=== PATIENT | male | born 1955 | race Caucasian/White ===

== ENCOUNTER 2016-09-02 12:27 | Emergency (ER) | payer MEDICARE, MEDICAID ==
[~2016-09-02] VITALS: Ht 177.8 cm; Wt 72.7 kg
[~2016-09-02 12:27] MED LIST: ATOR20TA38 PO; BENA20TA48 PO; CARV3.1260 PO; ETHA400T25; FURO-109 PO; RIFA150C2 PO; SPIR25TA PO
[2016-09-02 12:30] VITALS: Ht 177.8 cm; Wt 72.7 kg
[2016-09-02 12:44] LABS: ADD SCAN DIFF NO
[2016-09-02 12:47] LABS: BASOPHILS % 0.6 % (0.0-2.0); EOSINOPHILS # 0.5 10^3/ul (0.0-0.5); EOSINOPHILS % 7.1 % (0.0-7.0); HEMATOCRIT 39.5 % (42.0-52.0); HEMOGLOBIN 12.9 g/dl (14.0-18.0); LYMPHOCYTES # 1.6 10^3/ul (0.8-2.9); LYMPHOCYTES % 25.4 % (15.0-51.0); MEAN CORPUSCULAR HEMOGLOBIN 30.5 pg (29.0-33.0); MEAN CORPUSCULAR HGB CONC 32.7 g/dl (32.0-37.0); MEAN CORPUSCULAR VOLUME 93.4 fl (82.0-101.0); MEAN PLATELET VOLUME 10.5 fl (7.4-10.4); MONOCYTE # 0.7 10^3/ul (0.3-0.9); MONOCYTES % 11.6 % (0.0-11.0); NEUTROPHIL # 3.5 10^3/ul (1.6-7.5); PLATELET COUNT 141 10^3/UL (140-415); RED BLOOD COUNT 4.23 10^6/ul (4.70-6.10); RED CELL DISTRIBUTION WIDTH 14.4 % (11.5-14.5); WHITE BLOOD COUNT 6.3 10^3/ul (4.8-10.8)
[2016-09-02 12:59] LABS: CHLORIDE 106 mmol/L (97-110); POTASSIUM 3.8 mmol/L (3.5-5.1); SODIUM 143 mmol/L (135-144)
[2016-09-02 13:01] LABS: CREATININE 1.07 mg/dl (0.61-1.24)
[2016-09-02 13:02] LABS: ANION GAP 14 (8-16); BLOOD UREA NITROGEN 29 mg/dl (7-20); CALCIUM 9.7 mg/dl (8.4-10.2); CARBON DIOXIDE 27 mmol/L (21-31); GLUCOSE 88 mg/dl (70-220)
[2016-09-02 13:03] LABS: INR 1.06; PROTIME 13.8 Sec (12.2-14.2); PT RATIO 1.1
[2016-09-02 13:04] LABS: PARTIAL THROMBOPLASTIN TIME 32.6 Sec (25.0-35.0)
[2016-09-02 13:22] LABS: TROPONIN-I < 0.012 ng/ml (0.00-0.12)
--- NOTE | 2016-09-02 14:15 | RADRPT ---
PROCEDURE: CT Brain without contrast. CLINICAL INDICATION: Slurred speech. Possible stroke. TECHNIQUE: A CT of the brain was performed on a multidetector CT scanner utilizing axial sections from the skull base through the vertex without contrast. Images were reviewed on a high-resolution [employer] workstation. Exam CTDI = 43.05 mGy and the DLP = 810.25 mGy-cm. One or more of the following dose reduction techniques were used: Automated exposure control Adjustment of the mA and/or kV according to patient size. Use of iterative reconstruction technique. COMPARISON: MRI brain 10/03/2014 FINDINGS: Mild to moderate diffuse cerebral and cerebellar atrophy is present. There is proportionate dilatat ion of the ventricular system and sulci in a symmetric fashion. There is prominence of the extraaxia l spaces secondary to atrophy. There is no evidence of intracranial hemorrhage, mass effect or midli ne shift. There is small area of transcortical infarct in the left inferior frontal lobe extending i nto the frontal operculum. No abnormal intra-axial or extra-axial fluid collections are seen. The d ensity of the brain is normal and the nicolas/white matter differentiation is well preserved. Mild pat jacquelin diffuse deep white matter microangiopathic ischemic change is seen. The osseous structures a re unremarkable. Paranasal sinuses are clear. Vascular calcifications are identified. There is a sma ll subcutaneous lipoma on the right forehead. IMPRESSION: 1. No intracranial hemorrhage, mass effect or midline shift. 2. Mild to moderate generalized atrophy. Mild microangiopathic ischemic change. 3. Chronic infarct in the inferior left frontal lobe extending into the left frontal operculum. 4. Intracranial atherosclerosis. RPTAT: AAEE .Gus Garay MD, MD Date Time Electronically viewed and signed by .Gus Garay MD, MD on 09/02/2016 14:14 .O/
--- NOTE | 2016-09-02 14:23 | ERD ---
ER Documentation Chief Complaint Date/Time DATE: 09/02/16 TIME: 14:23 Chief Complaint aspahsia following a fall at home at 0300, hs of stroke HPI Patient is a 61-year-old male with stroke and hypertension who presents with difficulty speaking. The patient had a fall at 3 AM and afterwards had "aphasia " per the family. There was no loss of consciousness. The symptoms have been constant. The patient says this is not normal for him. Upon review of old medical records this is the patient's third visit to the ER since 2013. The patient was brought in by ambulance. ROS All systems reviewed and are negative except as per history of present illness. Medications Home Meds Reported Medications Ethambutol HCl* (Myambutol*) 400 Mg Tablet UNABLE TO CONFIRM DOSE/STRENGTH; PATIENT NOT COMPLIANT 10/03/14 Rifampin* (Rifampin*) 150 Mg Capsule, 150 MG PO BID, CAP PATIENT NOT COMPLIANT; UNABLE TO CONFIRM DOSE 10/03/14 Carvedilol* (Carvedilol*) 3.125 Mg Tablet, 3.125 MG PO BID, TAB 05/05/14 Atorvastatin Calcium* (Atorvastatin Calcium*) 20 Mg Tablet, 20 MG PO DAILY, TAB 05/05/14 Benazepril Hcl* (Benazepril Hcl*) 20 Mg Tablet, 20 MG PO DAILY, TAB 05/05/14 Furosemide* (Lasix*) 40 Mg Tablet, 40 MG PO BID, TAB 05/05/14 Spironolactone* (Aldactone*) 25 Mg Tablet, 25 MG PO DAILY, TAB 05/05/14 Allergies Allergies: Coded Allergies: Penicillins (Unverified Allergy, Unknown, 10/03/14) PMhx/Soc History of Surgery: Yes (lung resection) Anesthesia Reaction: No Hx Neurological Disorder: Yes (CVA, Seizure) Hx Respiratory Disorders: Yes (Left Lung Ca) Hx Cardiac Disorders: Yes (CHF) Hx Psychiatric Problems: No Hx Miscellaneous Medical Probl: Yes (Epilepsy, Lung CA, CVA, CHF, TB,) Hx Alcohol Use: Yes (Occ'l drink of beer or wine) Hx Substance Use: Yes (Marijuana) Hx Tobacco Use: Yes (1/2 pack/day) Smoking Status: Current every day smoker FmHx Family History: No diabetes Physical Exam Vitals Vital Signs Date Time Temp Pulse Resp B/P Pulse Ox O2 Delivery O2 Flow Rate FiO2 09/02/16 12:30 97.6 71 20 120/70 96 Physical Exam Const: No acute distress Head: Atraumatic Eyes: Normal Conjunctiva ENT: Normal External Ears, Nose and Mouth. Neck: Full range of motion..~ No meningismus. Resp: Clear to auscultation bilaterally Cardio: Regular rate and rhythm, no murmurs Abd: Soft, non tender, non distended. Normal bowel sounds Skin: No petechiae or rashes Back: No midline or flank tenderness Ext: No cyanosis, or edema Neur: Awake and alert, patient does have word finding difficulty which he says is not normal for him, there is full range of motion of the upper and lower extremities bilaterally, cranial nerves II through XII are intact Psych: Normal Mood and Affect Result Diagram: 09/02/16 1230 09/02/16 1230 Results 24 hrs Laboratory Tests Test 09/02/16 12:30 09/02/16 12:57 White Blood Count 6.310^3/ul Red Blood Count 4.2310^6/ul Hemoglobin 12.9g/dl Hematocrit 39.5% Mean Corpuscular Volume 93.4fl Mean Corpuscular Hemoglobin 30.5pg Mean Corpuscular Hemoglobin Concent 32.7g/dl Red Cell Distribution Width 14.4% Platelet Count 38475^3/UL Mean Platelet Volume 10.5fl Neutrophils % 55.0% Lymphocytes % 25.4% Monocytes % 11.6% Eosinophils % 7.1% Basophils % 0.6% Nucleated Red Blood Cells % 0.0/100WBC Neutrophils # 3.510^3/ul Lymphocytes # 1.610^3/ul Monocytes # 0.710^3/ul Eosinophils # 0.510^3/ul Basophils # 0.010^3/ul Nucleated Red Blood Cells # 0.010^3/ul Prothrombin Time 13.8Sec Prothrombin Time Ratio 1.1 INR International Normalized Ratio 1.06 Activated Partial Thromboplast Time 32.6Sec Sodium Level 143mmol/L Potassium Level 3.8mmol/L Chloride Level 106mmol/L Carbon Dioxide Level 27mmol/L Anion Gap 14 Blood Urea Nitrogen 29mg/dl Creatinine 1.07mg/dl Glucose Level 88mg/dl Hemoglobin A1c 5.7% Calcium Level 9.7mg/dl Troponin I < 0.012ng/ml Bedside Glucose 80mg/dL Procedures/MDM EKG read by me: Rate/Rhythm: Atrial fibrillation at a rate of 81 Intervals: Normal Impression: Atrial fibrillation without ischemia PROCEDURE: CT Brain without contrast. CLINICAL INDICATION: Slurred speech. Possible stroke. TECHNIQUE: A CT of the brain was performed on a multidetector CT scanner utilizing axial sections from the skull base through the vertex without contrast. Images were reviewed on a high-resolution [employer] workstation. Exam CTDI = 43.05 mGy and the DLP = 810.25 mGy-cm. One or more of the following dose reduction techniques were used: Automated exposure control Adjustment of the mA and/or kV according to patient size. Use of iterative reconstruction technique. COMPARISON: MRI brain 10/03/2014 FINDINGS: Mild to moderate diffuse cerebral and cerebellar atrophy is present. There is proportionate dilatation of the ventricular system and sulci in a symmetric fashion. There is prominence of the extraaxial spaces secondary to atrophy. There is no evidence of intracranial hemorrhage, mass effect or midline shift. There is small area of transcortical infarct in the left inferior frontal lobe extending into the frontal operculum. No abnormal intra-axial or extra-axial fluid collections are seen. The density of the brain is normal and the nicolas/ white matter differentiation is well preserved. Mild patchy diffuse deep white matter microangiopathic ischemic change is seen. The osseous structures are unremarkable. Paranasal sinuses are clear. Vascular calcifications are identified. There is a small subcutaneous lipoma on the right forehead. The patient has anemia without needing a transfusion at this time. IMPRESSION: 1. No intracranial hemorrhage, mass effect or midline shift. 2. Mild to moderate generalized atrophy. Mild microangiopathic ischemic change. 3. Chronic infarct in the inferior left frontal lobe extending into the left frontal operculum. 4. Intracranial atherosclerosis. RPTAT: AAEE .Gus Garay MD, Date Time Electronically viewed and signed by .Gus Garay MD, MD on 09/02/2016 14:14 Smoking Cessation Therapy: Pt. was lectured for greater than 3 minutes on the health risks of continued smoking and the benefits of cessation. Patient is a 61-year-old male with stroke and hypertension who presents with a fascia. I am concerned for another stroke. The patient had a full workup for stroke and I want to admit him to the hospital. However the patient is adamant that he does not want to stay in the hospital. He is going to sign out AGAINST MEDICAL ADVICE. I explained to him the risks of having a worsening stroke and even but the patient does not want to stay and understands the risks. The patient should follow-up closely with his primary doctor as soon as possible. He can return for any worsening symptoms. Departure Diagnosis: Primary Impression: Aphasia Additional Impressions: Altered level of consciousness Stroke CVA mechanism: unspecified Qualified Code: I63.9 - Cerebrovascular accident (CVA), unspecified mechanism Condition: Fair Patient Instructions: Stroke and Heart Disease, What Is Aphasia? Referrals: Your doctor Additional Instructions: FOLLOW UP WITH YOUR PRIMARY CARE PHYSICIAN TOMORROW.Return to this facility if you are not improving as expected. HAI RUBIN MD Sep 02, 2016 14:23
--- NOTE | 2016-09-02 14:26 | RADRPT ---
PROCEDURE: XR Chest. CLINICAL INDICATION: Altered level of consciousness. TECHNIQUE: AP Portable chest. COMPARISON: Chest x-ray 10/03/2014. FINDINGS: Once again, there is evidence of extensive pleural parenchymal scarring in the left upper lobe with hazy opacification in the left lung apex and tenting of the left suprahilar region. The heart is gr ossly normal in size. The right lung is slightly hyperaerated but clear. No definite pleural effus ions are seen. Elevation of the left hemidiaphragm is unchanged. Degenerative spondylosis of the t horacic spine is evident. IMPRESSION: 1. Grossly stable appearance of the chest with marked pleural parenchymal scarring and volume loss in the lower lung as described above. 2. Clear right lung. RPTAT: PP .Yvonne Boyer MD, Date Time Electronically viewed and signed by .Yvonne Boyer MD, on 09/02/2016 14:25 .H/
== END 2016-09-02 14:48 | disposition left against medical advice (07) ==
LOC: E/R 12:27
DX: R47.01 Aphasia (principal); R40.2252 Coma scale, best verbal response, oriented, at arrival to emergency department; R40.4 Transient alteration of awareness; I63.9 Cerebral infarction, unspecified; I50.9 Heart failure, unspecified; F17.210 Nicotine dependence, cigarettes, uncomplicated; R40.2142 Coma scale, eyes open, spontaneous, at arrival to emergency department; R40.2362 Coma scale, best motor response, obeys commands, at arrival to emergency department; Z85.118 Personal history of other malignant neoplasm of bronchus and lung
CPT/HCPCS: 36415; 70450; 71010; 80048; 82962; 83036; 84484; 85025; 85610; 85730; 93005

== ENCOUNTER 2016-10-13 20:49 | Inpatient (IN) | payer MEDICARE, MEDICAID ==
[~2016-10-13] VITALS: Ht 195.6 cm; Wt 77.8 kg
[2016-10-13 21:07] LABS: ADD SCAN DIFF NO
--- NOTE | 2016-10-13 21:07 | ERA ---
ER Documentation Chief Complaint Date/Time DATE: 10/13/16 TIME: 21:02 Chief Complaint BERE RA39 from home, left side weakness,left mouth droop started 2019 HPI Patient is a 61-year-old male who presents with sudden onset, constant left- sided weakness with left facial droop for 30 minutes. The patient also reports difficulty speaking. He reports history of prior TIA, denies having these symptoms previously. He denies headache, vomiting, dizziness. He denies chest pain, shortness of breath. ROS All systems reviewed and are negative except as per history of present illness. Medications Home Meds Reported Medications Ethambutol HCl* (Myambutol*) 400 Mg Tablet UNABLE TO CONFIRM DOSE/STRENGTH; PATIENT NOT COMPLIANT 10/03/14 Rifampin* (Rifampin*) 150 Mg Capsule, 150 MG PO BID, CAP PATIENT NOT COMPLIANT; UNABLE TO CONFIRM DOSE 10/03/14 Carvedilol* (Carvedilol*) 3.125 Mg Tablet, 3.125 MG PO BID, TAB 05/05/14 Atorvastatin Calcium* (Atorvastatin Calcium*) 20 Mg Tablet, 20 MG PO DAILY, TAB 05/05/14 Benazepril Hcl* (Benazepril Hcl*) 20 Mg Tablet, 20 MG PO DAILY, TAB 05/05/14 Furosemide* (Lasix*) 40 Mg Tablet, 40 MG PO BID, TAB 05/05/14 Spironolactone* (Aldactone*) 25 Mg Tablet, 25 MG PO DAILY, TAB 05/05/14 Allergies Allergies: Coded Allergies: Penicillins (Unverified Allergy, Unknown, 10/03/14) PMhx/Soc Past medical history: Hypertension, CHF, latent tuberculosis, TIA, lung cancer Past surgical history: Resection of lung tumor, resection of renal tumor Social history: Smokes cigarettes, denies alcohol History of Surgery: Yes (lung resection) Anesthesia Reaction: No Hx Neurological Disorder: Yes (CVA, Seizure) Hx Respiratory Disorders: Yes (Left Lung Ca) Hx Cardiac Disorders: Yes (CHF) Hx Psychiatric Problems: No Hx Miscellaneous Medical Probl: Yes (Epilepsy, Lung CA, CVA, CHF, TB,) Hx Alcohol Use: Yes (Occ'l drink of beer or wine) Hx Substance Use: Yes (Marijuana) Hx Tobacco Use: Yes (1/2 pack/day) Smoking Status: Current every day smoker FmHx Family History: No coronary disease, No diabetes Physical Exam Vitals Vital Signs Date Time Temp Pulse Resp B/P Pulse Ox O2 Delivery O2 Flow Rate FiO2 10/13/16 23:42 726 21 123/63 95 10/13/16 23:27 72 21 123/65 95 10/13/16 23:12 73 18 126/66 100 10/13/16 22:57 68 20 105/68 98 10/13/16 22:42 71 20 124/77 98 10/13/16 22:27 76 20 123/59 98 10/13/16 22:12 79 18 147/94 97 10/13/16 21:57 76 18 131/77 98 10/13/16 21:42 73 18 124/71 98 10/13/16 21:42 98.0 73 18 124/71 98 Nasal Cannula 3.0 10/13/16 21:01 Nasal Cannula 3 10/13/16 21:00 99 3.0 30 10/13/16 20:55 98.0 88 17 143/83 98 Physical Exam Const: Alert, no acute distress Head: Atraumatic Eyes: Normal Conjunctiva, no pallor, no icterus ENT: Normal External Ears, Nose and Mouth. Moist mucous membranes Neck: Full range of motion..~ No meningismus. Resp: Diminished breath sounds left lung field, no wheezes, no rales Cardio: Irregularly irregular rhythm, no murmurs Abd: Soft, non tender, non distended. Normal bowel sounds Skin: No petechiae or rashes Back: No midline or flank tenderness Ext: No cyanosis, 1+ pitting edema right leg, no edema left leg Neur: Awake and alert, slurred speech, left lower facial droop. Strength 5 out of 5 in all muscle groups of left arm. Positive pronator drift, dysmetria of left arm. Psych: Normal Mood and Affect Result Diagram: 10/13/16 2100 10/13/16 2100 Results 24 hrs Laboratory Tests Test 10/13/16 21:00 10/13/16 21:11 White Blood Count 6.410^3/ul Red Blood Count 4.5110^6/ul Hemoglobin 13.8g/dl Hematocrit 41.8% Mean Corpuscular Volume 92.7fl Mean Corpuscular Hemoglobin 30.6pg Mean Corpuscular Hemoglobin Concent 33.0g/dl Red Cell Distribution Width 13.6% Platelet Count 16060^3/UL Mean Platelet Volume 10.5fl Neutrophils % 51.1% Lymphocytes % 30.1% Monocytes % 11.8% Eosinophils % 6.0% Basophils % 0.8% Nucleated Red Blood Cells % 0.0/100WBC Neutrophils # 3.310^3/ul Lymphocytes # 1.910^3/ul Monocytes # 0.810^3/ul Eosinophils # 0.410^3/ul Basophils # 0.110^3/ul Nucleated Red Blood Cells # 0.010^3/ul Prothrombin Time 14.3Sec Prothrombin Time Ratio 1.1 INR International Normalized Ratio 1.11 Activated Partial Thromboplast Time 31.5Sec Sodium Level 143mmol/L Potassium Level 4.2mmol/L Chloride Level 108mmol/L Carbon Dioxide Level 27mmol/L Anion Gap 12 Blood Urea Nitrogen 27mg/dl Creatinine 1.04mg/dl Glucose Level 75mg/dl Hemoglobin A1c 5.7% Calcium Level 9.9mg/dl Total Bilirubin 0.2mg/dl Direct Bilirubin 0.00mg/dl Indirect Bilirubin 0.2mg/dl Aspartate Amino Transf (AST/SGOT) 38IU/L Alanine Aminotransferase (ALT/SGPT) 44IU/L Alkaline Phosphatase 102IU/L Troponin I < 0.012ng/ml Total Protein 7.9g/dl Albumin 4.5g/dl Globulin 3.40g/dl Albumin/Globulin Ratio 1.32 Bedside Glucose 80mg/dL Current Medications Medications (Trade) Dose Ordered Sig/Yuan Route PRN Reason Start Time Stop Time Status Last Admin Dose Admin Alteplase, Recombinant (Activase) 7.3 mg BOLUS OVER 1 MIN ONCE IV* 10/13/16 21:30 10/13/16 21:31 DC 10/13/16 21:42 Alteplase, Recombinant 65.5 mg 65.5 mg ISCHEMIC STROKE ONCE IV* 10/13/16 21:30 10/13/16 21:31 DC 10/13/16 21:44 Sodium Chloride (NS) 50 ml @ 0 mls/hr FLUSH AFTER TPA ONCE IV 10/13/16 21:30 10/13/16 21:31 DC 10/13/16 22:45 Ondansetron HCl (Zofran Inj) 4 mg Q6H PRN IV NAUSEA AND/OR VOMITING 10/14/16 00:00 Acetaminophen (Tylenol Liquid) 650 mg Q6H PRN PO PAIN LEVEL 1-3 OR FEVER 10/14/16 00:00 Morphine Sulfate (morphine) 2 mg Q4H PRN IV PAIN LEVEL 7-10 10/14/16 00:00 Lorazepam (Ativan) 1 mg Q2H PRN IV ANXIETY 10/14/16 00:00 Docusate Sodium (Colace) 100 mg BID PO 10/14/16 09:00 Atorvastatin Calcium (Lipitor) 20 mg DAILY PO 10/14/16 20:00 Benazepril HCl (Lotensin) 20 mg DAILY PO 10/14/16 09:00 Carvedilol (Coreg) 3.125 mg BID PO 10/14/16 09:00 Furosemide (Lasix) 40 mg BID@06,18 PO 10/14/16 06:00 Spironolactone (Aldactone) 25 mg DAILY PO 10/14/16 09:00 Procedures/MDM EKG read by me: Time 2056, rate 83 Rhythm: Atrial fibrillation [place]: Rightward axis Intervals: Prolonged QTC ST-T waves: Nonspecific changes Ectopy: Occasional PVCs Q-waves: No Impression: Atrial fibrillation with occasional PVCs, no obvious ischemia MDM: Patient is a 61-year-old male who presents to the ER with acute left facial droop and left arm weakness. On exam he actually has full strength on direct testing of muscles of the left arm, but he has pronator drift and some difficulty coordinating movements of the arm. A code stroke was called. Head CT shows old left frontal stroke which does not explain his symptoms. Tele- neurology was consulted, and Dr. Kang, the tele-neurologist, evaluated the patient. She recommended the patient for TPA. Both she and I reviewed contraindications, and discussed risks and benefits with the patient and his partner. The patient consented to TPA. TPA was administered within 90 minutes of the onset of the patient's symptoms. The patient will be admitted to the ICU by Dr. Lopez. I have ordered MRI and MRA for further evaluation of the patient's vasculature. The patient is found to have atrial fibrillation, which is likely the cause of the patient's stroke. The patient is also noted to have previous ER visits for TIAs and has evidence of old stroke on CT. Critical Care Time: 35 minutes Treatments/Evaluations: Close monitoring and treatment of unstable vital signs, cardiorespiratory, and neurologic status, while maintaining tight balance of fluid, respiratory, and cardiac interventions. This time includes discussing the case with the patient and the patient's family. This time does not include all procedures stated elsewhere in this record. This time also includes reviewing old records, labs and radiological studies. This time includes examining and re-examining the patient. Additionally, this time also includes arranging care with admitting and consulting physicians. Departure Diagnosis: Primary Impression: Acute ischemic stroke Condition: Stable CAITLIN JONES MD Oct 13, 2016 21:07
[2016-10-13 21:10] LABS: BASOPHIL # 0.1 10^3/ul (0.0-0.1); BASOPHILS % 0.8 % (0.0-2.0); EOSINOPHILS # 0.4 10^3/ul (0.0-0.5); HEMATOCRIT 41.8 % (42.0-52.0); HEMOGLOBIN 13.8 g/dl (14.0-18.0); LYMPHOCYTES # 1.9 10^3/ul (0.8-2.9); LYMPHOCYTES % 30.1 % (15.0-51.0); MEAN CORPUSCULAR HEMOGLOBIN 30.6 pg (29.0-33.0); MEAN CORPUSCULAR VOLUME 92.7 fl (82.0-101.0); MEAN PLATELET VOLUME 10.5 fl (7.4-10.4); MONOCYTE # 0.8 10^3/ul (0.3-0.9); MONOCYTES % 11.8 % (0.0-11.0); NEUTROPHIL # 3.3 10^3/ul (1.6-7.5); NEUTROPHILS % 51.1 % (39.0-77.0); PLATELET COUNT 159 10^3/UL (140-415); RED BLOOD COUNT 4.51 10^6/ul (4.70-6.10); RED CELL DISTRIBUTION WIDTH 13.6 % (11.5-14.5); WHITE BLOOD COUNT 6.4 10^3/ul (4.8-10.8)
--- NOTE | 2016-10-13 21:15 | RADRPT ---
PROCEDURE: CT brain without contrast CLINICAL INDICATION: Weakness. Possible stroke TECHNIQUE: A CT of the brain was performed utilizing axial sections from the skull base through th e vertex without contrast. Sagittal and coronal images were also reformatted. The exam CTDIvol = 45. 01 mGy and DLP = 720.23 mGy-cm. COMPARISON: 09/02/2016 FINDINGS: No acute intracranial hemorrhage is identified. There is no mass effect or midline shift. No extra -axial fluid collection is seen. The ventricles and sulci are larger in size and configuration for the patient's provided age of 61 years consistent with advanced generalized atrophy. Encephalomalac ia regarding the left frontal operculum and an old infarct in this location is again noted. Schmidt-wh ite differentiation is preserved with no findings to suggest an acute ischemic infarct. The fourth ventricle is midline and there is no density alteration within the jose carlos or cerebellum. The osseous structures are unremarkable. Incidental right frontal scalp lipoma is again seen. The mastoid air cells and visualized paranasal sinuses are clear. RPTAT:HJJR IMPRESSION: 1. Advanced atrophy for the patient's provided age with old left frontal operculum infarct but no ev idence of acute intracranial abnormality or interval change from 09/02/2016. 2. Results are discussed by telephone with Dr. Mcconnell at 21:12 Physician Mandie Date Time Electronically viewed and signed by Physician Mandie on 10/13/2016 21:14 JR/
[2016-10-13 21:28] LABS: INR 1.11; PARTIAL THROMBOPLASTIN TIME 31.5 Sec (25.0-35.0); PROTIME 14.3 Sec (12.2-14.2); PT RATIO 1.1
[2016-10-13] MEDS ORDERED: ALTEPLASE 100 MG INJ IV* ONE (21:30)
[2016-10-13] MEDS ORDERED: ALTEPLASE (tPA) 1 MG/ML BOLUS SYG IV* ONE (21:30)
[2016-10-13] MEDS ORDERED: SOD CHLORIDE 0.9% 50 ML IV ONE (21:30)
[2016-10-13 21:32] LABS: ALANINE AMINOTRANSFERASE 44 IU/L (13-69); ALBUMIN 4.5 g/dl (3.3-4.9); ALBUMIN/GLOBULIN RATIO 1.32; ALKALINE PHOSPHATASE 102 IU/L (42-121); ANION GAP 12 (8-16); ASPARTATE AMINO TRANSFERASE 38 IU/L (15-46); BILIRUBIN,INDIRECT 0.2 mg/dl (0-1.1); BILIRUBIN,TOTAL 0.2 mg/dl (0.2-1.3); BLOOD UREA NITROGEN 27 mg/dl (7-20); CALCIUM 9.9 mg/dl (8.4-10.2); CARBON DIOXIDE 27 mmol/L (21-31); CHLORIDE 108 mmol/L (97-110); CREATININE 1.04 mg/dl (0.61-1.24); GLUCOSE 75 mg/dl (70-220); POTASSIUM 4.2 mmol/L (3.5-5.1); SODIUM 143 mmol/L (135-144); TOTAL PROTEIN 7.9 g/dl (6.1-8.1)
[2016-10-13 21:42] VITALS: TEMP 98
[2016-10-13 21:43] LABS: TROPONIN-I < 0.012 ng/ml (0.00-0.12)
--- NOTE | 2016-10-13 22:25 | STROKE ---
Date/Time of Note Date/Time of Note DATE: 10/13/16 TIME: 21:19 Patient Information General Patient location: emergency Arrival Date Age 61 Gender male Weight 80.91 kg per patient verbatim Vital Signs Vital Signs Vital Signs Date Time Temp Pulse Resp B/P Pulse Ox O2 Delivery O2 Flow Rate FiO2 10/13/16 21:01 Nasal Cannula 3 10/13/16 20:55 98.0 88 17 143/83 98 Patient History Current Medications Allergies: Coded Allergies: Penicillins (Unverified Allergy, Unknown, 10/03/14) Labs Hematology Labs Hematology Test 10/13/16 21:00 White Blood Count 6.410^3/ul (4.8-10.8) Red Blood Count 4.5110^6/ul (4.70-6.10) Hemoglobin 13.8g/dl (14.0-18.0) Hematocrit 41.8% (42.0-52.0) Mean Corpuscular Volume 92.7fl (82.0-101.0) Mean Corpuscular Hemoglobin 30.6pg (29.0-33.0) Mean Corpuscular Hemoglobin Concent 33.0g/dl (32.0-37.0) Red Cell Distribution Width 13.6% (11.5-14.5) Platelet Count 30711^3/UL (140-415) Mean Platelet Volume 10.5fl (7.4-10.4) Neutrophils % 51.1% (39.0-77.0) Lymphocytes % 30.1% (15.0-51.0) Monocytes % 11.8% (0.0-11.0) Eosinophils % 6.0% (0.0-7.0) Basophils % 0.8% (0.0-2.0) Nucleated Red Blood Cells % 0.0/100WBC (0.0-0.0) Neutrophils # 3.310^3/ul (1.6-7.5) Lymphocytes # 1.910^3/ul (0.8-2.9) Monocytes # 0.810^3/ul (0.3-0.9) Eosinophils # 0.410^3/ul (0.0-0.5) Basophils # 0.110^3/ul (0.0-0.1) Nucleated Red Blood Cells # 0.010^3/ul (0.0-0.0) History & Physical Patient History Notes Pt Hx Reviewed History of Present Illness 61yo M presents with acute onset left sided weakness and speech difficulty. Patient reports that his symptoms began at 8:20pm. Patient had transient ischemic attack 1 month ago but left against medical advice without completing the workup. Patient reports that he is scared of hospitals due his difficult experiences during treatment for his cancers. Review of Systems EENTM: no symptoms reported Respiratory: no symptoms reported Cardiovascular: no symptoms reported Gastrointestinal: no symptoms reported Genitourinary: no symptoms reported Musculoskeletal: no symptoms reported Skin: no symptoms reported Psychiatric/Neurological: no symptoms reported All Other Systems: Reviewed and Negative NIH Stroke Scale NIH Stroke Scale 1A - Level of Conciousness: 0 - Alert keenly [id number] LOC Questions: 0 - Answers both [id number] - LOC Commands: 0 - Performs both tasks2 - Best Gaze: 0 - Normal3 - Visual: 0 - No visual loss4 - Facial Palsy: 2 - Complete [id number] - Motor Arm - Left: 1 - [id number] - Motor Arm - Right: 0 - No drift 6A - Motor Leg - Left: 0 - No [id number] - Motor Leg - Right: 0 - No drift7 - Limb Ataxia: 0 - Absent8 - Sensory: 0 - Normal9 - Best Language: 0 - No aphasia or normalDysarthria: 1 - Mild to [id number] - Extinction and inattentio : 0 - No abnormalityTotal Score: 4 Date/Time Recorded DATE: 10/13/16 TIME: 21:19 Submitted By Constance Kang t-PA Imaging Review Imaging Reviewed: Yes Date/Time Imaging Reviewed DATE: 10/13/16 TIME: 21:19 Imaging Findings No acute changes t-PA Administration Recommendation: Yes Weight 80.91 kg per patient verbatim t-PA Recommendation Date/Time 10/13/16 21:20 Recommedation submitted by Constance Kang Recommendations Impression Diagnosis ischemic stroke Recommendation 61yo M presents with acute onset left sided weakness and slurred speech. Neurological exam is notable for moderate dysarthria, left facial droop, and mild left arm weakness. I believe the patient is having an acute ischemic stroke. I reviewed the risks and benefits of IV TPA in detail with the patient and his and they are agreeable to my recommendation for IV TPA. I recommend further workup include MRI Brain without gadolinium, MRA of the head without gadolinium, MRA of the neck with gadolinium, and transthoracic echocardiogram. I recommend post-TPA orders be followed. I discussed the importance of staying in the hospital for monitoring after TPA administration and discussed ways of coping with his fear. Post t-PA Order recommendation: Document q15 min vitals Document q15 min neuro checks Document q15 min bleeding checks Refer to t-PA Order Sets Diagnostic Labs: Lipid Proile Hgb A1C CMP CBC w/Diff Coags Therapy: Physical Therapy Speech Therapy Occupational Therapy Misc. Recommendations: Bedside Swallow Evaluation Pnumatic Compression Devices Avoid Stevenson Catheter Stroke Education Smoking Education CONSTANCE KANG Oct 13, 2016 22:25
--- NOTE | 2016-10-13 22:30 | RADRPT ---
PROCEDURE: XR Chest. CLINICAL INDICATION: Possible stroke. TECHNIQUE: Single frontal view of the chest was obtained. COMPARISON: Chest x-ray 10/03/2014. FINDINGS: There is extensive left apical pleural scarring. A metal clip is noted at the level of the left mariia nstem bronchus which is elevated. The heart is enlarged. Interstitial scarring is noted in the lef t hilar area and is stable. No acute infiltrate is identified. There are degenerative changes in t he thoracic spine. The heart is enlarged. The pulmonary vasculature is normal. There is a left-si ded aorta. No significant changes noted compared to the prior study. The costophrenic angles are no rmal. IMPRESSION: 1. Left apical pleural and parenchymal scarring which may be the result of a prior inflammatory proc ess such as TB. 2. Cardiomegaly. 3. Stable chest when compared to 10/03/2014. RPTAT:AAJJ Physician Chacorta Date Time Electronically viewed and signed by Physician Chacorta on 10/13/2016 22:30 BRENT/
--- NOTE | 2016-10-13 22:53 | RADRPT ---
PROCEDURE: US Lower extremity Venous. CLINICAL INDICATION: Right leg edema TECHNIQUE: Multiple sonographic images of the right lower extremity deep venous system was obtaine d utilizing grayscale, color-flow, compressive sonography and doppler imaging with augmentation. Th e images were reviewed on a PACS workstation. COMPARISON: None. FINDINGS: There is normal compressibility and flow within the right common femoral, femoral, posterior tibial, peroneal and popliteal veins. RPTAT: AA IMPRESSION: No sonographic evidence for deep venous thrombosis. .Placido Salter MD, MD Date Time Electronically viewed and signed by .Placido Salter MD, MD on 10/13/2016 22:53 .S/
[2016-10-14] VITALS (39 sets, daily range): BP systolic 81–165; BP diastolic 36–97; PULSE 37–96; RESP 15–23; Ht 195.6 cm; Wt 77.8 kg
[2016-10-14] MEDS ORDERED: ONDANSETRON 4 MG INJ IV PRN
[2016-10-14] MEDS ORDERED: morphine 2 MG INJ IV PRN
[2016-10-14] MEDS ORDERED: ACETAMINOPHEN 650MG/20.3ML CUP PO PRN
[2016-10-14] MEDS ORDERED: LORAZEPAM 2 MG INJ IV PRN
[2016-10-14] MEDS: FUROSEMIDE 40 MG TAB PO SCH ×2 (07:00→17:45)
--- NOTE | 2016-10-14 07:41 | HP ---
DATE OF ADMISSION: 10/13/2016 TIME SEEN: 2330. CHIEF COMPLAINT: Left-sided weakness, left facial droop and difficulty speaking. HISTORY OF PRESENT ILLNESS: The patient is a 61-year-old male with a history of COPD, metastatic pernell ng cancer to kidney status post lobectomy, CVA and latent TB. The patient also with a history of se juliocesar systolic dysfunction with EF of 20% to 25% per echo from 2015, history of recurrent TIA. The p bryan presented to the ER with left-sided weakness, left facial droop and difficulty speaking. He presented to the ER within about 30 minutes of symptom onset. Brain CT was done and it showed advan otilio atrophy for the patient's age with old left frontal opercular infarct but no evidence of acute i ntracranial abnormality or interval change from x-ray of 2017. The patient actually came to the ER with a stroke-like symptom about 6 weeks ago, but he left against medical advice from the ER. Today, the patient was evaluated by Dr. Alejandra Kang, the teleneurologist, and he is now status p ost TPA, his initial blood pressure was 143/83, heart rate 80, respiratory rate 17, temperature 98, oxygen saturation 98%. His CBC and CMP are within acceptable range. Chest x-ray shows left apical pleural and parenchymal scarring which may be the result of a prior inflammatory process such as TB, and cardiomegaly, otherwise chest x-ray was stable compared to the one from 2015. Right lower extr emity venous study was done because of right leg edema and was negative for a DVT. REVIEW OF SYSTEMS: A 12-point review of systems negative except as mentioned in HPI. PAST MEDICAL HISTORY: As per HPI. PAST SURGICAL HISTORY: As per HPI. SOCIAL HISTORY: He has a 40 year smoking history, usually smoking a few cigarettes a day. FAMILY HISTORY: Mother with renal failure from thyroid disease and CHF. His father had lung cancer . ALLERGIES: PENICILLIN. HOME MEDICATIONS: 1. Lipitor. 2. Benazepril. 3. Coreg. 4. Aldactone. 5. Lasix. PHYSICAL EXAMINATION: VITAL SIGNS: Stable. GENERAL: The patient lying in bed in no acute distress. HEENT: Normocephalic, atraumatic. Pupils are reactive to light. No scleral icterus. CARDIOVASCULAR: Regular rate and rhythm with no extra sounds. LUNGS: He has decreased breath sounds on the left side. ABDOMEN: Soft, nontender, nondistended. Positive bowel sounds. EXTREMITIES: With 1+ edema on the right lower extremity. NEUROLOGIC: He has decreased strength on the left arm compared to the right with positive pronator drift. There is left-sided facial droop. He is alert and oriented. Positive slurred speech. No d iplopia. No tongue deviation. LABORATORY DATA: CBC and CMP within acceptable range except BUN of 27. IMAGING: Brain CT, chest x-ray and a right lower extremity venous Doppler ultrasound with results a s mentioned in the HPI. IMPRESSION: 1. Acute on chronic cerebrovascular accident, status post tPA. 2. History of recurrent transient ischemic attacks. 3. History of severe systolic dysfunction with EF of 20-25%, per 2D echo in 2014, history of metast atic lung cancer to kidney, status post lobectomy, as well as kidney. 4. History of chronic obstructive pulmonary disease. 5. History of latent TB. PLAN: Continue ICU monitoring. We will follow up post-tPA protocol. We will place a neurology co nsult. He will be started on statin and aspirin tomorrow. Will obtain MRI of the brain as well as M RA of the head and neck or CT angio of the head and neck. We will also order a 2D echo. Monitor bl ood pressure closely. Blood glucose goal should be less than 180, so will check fingerstick blood g lucose frequently. He will be evaluated by physical therapist and will have a formal speech/swallow evaluation. He will be continued with his home medication except the Lipitor which will be started tomorrow night. We will continue his Lasix as well. Further workup and management per clinical course. Dictated By: DANIELA BHARDWAJ/KIKE Conf#: [id number] DID#: [id number]
[2016-10-14] MEDS: SPIRONOLACTONE 25 MG TAB PO SCH (08:37)
[2016-10-14] MEDS: DOCUSATE SODIUM 100 MG CAP PO SCH ×2 (08:38→21:39)
[2016-10-14] MEDS: BENAZEPRIL 20 MG TAB PO SCH (08:38)
--- NOTE | 2016-10-14 10:14 | PN ---
Date/Time of Note Date/Time of Note DATE: 10/14/16 TIME: 10:04 Assessment/Plan VTE Prophylaxis VTE Prophylaxis Intervention: SCD's Lines/Catheters IV [facility]ter [facility]from [facility]): [facility] Urinary Cath still in place: No Assessment/Plan Chief Complaint/Hosp Course Assessment and plan 1. Acute on chronic CVA status post TPA. Neurologist consulted. Will get ST/ OT/PT to follow. Continue on statin medication for now. 2. history of recurrent TIA. Antiplatelet per neurologist recommendations. Continue on statin for now. 3. History of severe cardiopathy with EF of 20-25%. Will get orthopedic assistant to follow. Follow-up on echocardiogram. Continue on cardiovascular medications. (Beta-marlon on hold due to bradycardia) 4. Bradycardia. Cardiology Nurse Practitioner follow. Continue telemetry monitoring. 5. History of COPD. Will provide bronchodilators as needed. Continue on O2. 6. History of latent TB. Patient is reporting antitubercular medications at home, but he is questionable for compliance with his medications. Will get ID consult to follow. 7. History of drug abuse. Will get social work associate to follow. Follow-up on drug tox screen. Cessation was advised. 8. Suspect history of medical noncompliance. Patient educated concerning issue and consequences of medical noncompliance. 9. Neck mass. Follow-up on imaging Disposition and plan: Follow-up with rehab services. Neurologist and orthopedic assistant as well as ID consult to follow. MRA of the neck and head is pending. Continue ICU monitoring for now. Discussed plan of care with Dr. Diaz Critical CARE time: 30 minutes ADDENDUM: Patient currently refusing for any blood work draw or further imaging of brain or for neck mass/cva until he is able to drink water. Patient did fail initial swallow eval in ER. We did attempt to get ST services to follow. Initial attempts were unsuccessful. Nursing supervisor sunglasses informed. Still unable to get further help with ST services to evaluate patient for swallow eval. Patient educated about consequences of medical noncompliance. Patient still refusing any lab draw or further imaging for his current CVA until he can drink water. Will follow up Problems: Subjective 24 Hr Interval Summary Free Text/Dictation Slightly lethargic. Noted with symmetrical upper and lower extremity strength 5 out of 5. Seen with some garbled speech Exam/Review of Systems Vital Signs Vitals Vital Signs Date Time Temp Pulse Resp B/P Pulse Ox O2 Delivery O2 Flow Rate FiO2 10/14/16 08:28 37 10/14/16 08:00 Nasal Cannula 2.0 10/14/16 07:00 17 133/77 95 10/14/16 04:00 98.0 10/13/16 21:00 30 Intake and Output 10/13/16 10/13/16 10/14/16 15:00 23:00 07:00 Intake Total 50 ml Output Total 350 ml Balance -300 ml Exam Constitutional: alert, other (Lethargic) Head: normocephalic Neck: other (Noted with appearance of soft tissue mass on the left side of the neck) Respiratory: diminished breath sounds Cardiovascular: other (Bradycardic to regular rate) Gastrointestinal: non-tender, soft Extremities: No edema Neurological: other (Alert to person place and situation. No obvious weakness in bilateral upper or lower extremities. Seen with some left facial droop) Results Result Diagram: 10/13/16 2100 10/13/16 2100 Results 24 hrs Laboratory Tests Test 10/13/16 21:00 10/13/16 21:11 White Blood Count 6.4 Red Blood Count 4.51 L Hemoglobin 13.8 L Hematocrit 41.8 L Mean Corpuscular Volume 92.7 Mean Corpuscular Hemoglobin 30.6 Mean Corpuscular Hemoglobin Concent 33.0 Red Cell Distribution Width 13.6 Platelet Count 159 Mean Platelet Volume 10.5 H Neutrophils % 51.1 Lymphocytes % 30.1 Monocytes % 11.8 H Eosinophils % 6.0 Basophils % 0.8 Nucleated Red Blood Cells % 0.0 Neutrophils # 3.3 Lymphocytes # 1.9 Monocytes # 0.8 Eosinophils # 0.4 Basophils # 0.1 Nucleated Red Blood Cells # 0.0 Prothrombin Time 14.3 H Prothrombin Time Ratio 1.1 INR International Normalized Ratio 1.11 Activated Partial Thromboplast Time 31.5 Sodium Level 143 Potassium Level 4.2 Chloride Level 108 Carbon Dioxide Level 27 Anion Gap 12 Blood Urea Nitrogen 27 H Creatinine 1.04 Glucose Level 75 Hemoglobin A1c 5.7 Calcium Level 9.9 Total Bilirubin 0.2 Direct Bilirubin 0.00 Indirect Bilirubin 0.2 Aspartate Amino Transf (AST/SGOT) 38 Alanine Aminotransferase (ALT/SGPT) 44 Alkaline Phosphatase 102 Troponin I < 0.012 Total Protein 7.9 Albumin 4.5 Globulin 3.40 H Albumin/Globulin Ratio 1.32 Bedside Glucose 80 Medications Medications Current Medications Ondansetron HCl (Zofran Inj) 4 mg Q6H PRN IV NAUSEA AND/OR VOMITING; Start 03/22 at 00:00 Acetaminophen (Tylenol Liquid) 650 mg Q6H PRN PO PAIN LEVEL 1-3 OR FEVER; Start 10/14/16 at 00:00 Morphine Sulfate (morphine) 2 mg Q4H PRN IV PAIN LEVEL 7-10; Start 10/14/16 at 00:00 Lorazepam (Ativan) 1 mg Q2H PRN IV ANXIETY; Start 10/14/16 at 00:00 Docusate Sodium (Colace) 100 mg BID PO ; Start 10/14/16 at 09:00 Atorvastatin Calcium (Lipitor) 20 mg DAILY PO ; Start 10/14/16 at 20:00 Benazepril HCl (Lotensin) 20 mg DAILY PO ; Start 10/14/16 at 09:00 Carvedilol (Coreg) 3.125 mg BID PO ; Start 10/14/16 at 09:00; Status Future Hold Furosemide (Lasix) 40 mg BID@,18 PO ; Start 10/14/16 at 06:00 Spironolactone (Aldactone) 25 mg DAILY PO ; Start 10/14/16 at 09:00 MARISSA LOPEZ Oct 14, 2016 10:14
--- NOTE | 2016-10-14 12:25 | CONS ---
DATE OF ADMISSION: 10/13/2016 DATE OF CONSULTATION: 10/14/2016 REASON FOR CONSULTATION: Cardiomyopathy with decreased left ventricular ejection fraction, bradycar marco, cardiac arrhythmia. REQUESTING PHYSICIAN: Dr. Lopez from the hospitalist service and ____. HISTORY OF PRESENT ILLNESS: Mr. Dsouza is a 61-year-old male with history of COPD, metastatic lung c ancer to kidney status post lobectomy, CVA, latent TB, cardiomyopathy with decreased left ventricula r ejection fraction, last known approximately 20 to 25% per echo 2014, who initially presented with left-sided facial weakness, difficulty speaking, left facial droop, and weakness in the left hand. Upon arrival in the emergency department, temperature of 98, blood pressure 143/83, pulse 88, respir ations 17, saturating 98%. The patient's labs revealed sodium 142, potassium 4.2, creatinine of 1.0 , BUN 27, AST 38, ALT 44. Troponin negative. White blood cell count 6.4, hemoglobin 13.8, platelet count 159. INR of 1.1. The patient underwent a venous ultrasound revealing no evidence of DVT. T he patient underwent a chest x-ray revealing left ventricle pleural parenchymal scarring, cardiomega ly. The patient's electrocardiogram revealed a rhythm concerning for possible atrial fibrillation v ersus sinus rhythm with frequent PACs and occasional PVCs. The patient was treated with TPA after n eurology consultation stating now that all symptoms had been within 30 minutes. The patient's head CT revealed atrophy from the patient's old left frontal infarct but no evidence of acute intracrania l abnormalities. The patient now has been admitted to the ICU where he denies chest pain, shortness of breath. He has some improvement in left-sided weakness. Additionally, the patient has improvem ent in speech. PAST MEDICAL HISTORY: As above in HPI. MEDICATIONS CURRENTLY IN HOSPITAL: 1. Lipitor 20 mg at bedtime. 2. Benazepril 20 mg daily. 3. Carvedilol 3.125 mg p.o. b.i.d. 4. Aldactone 25 mg daily. 5. Lasix 40 mg b.i.d. 6. Zofran p.r.n. 7. Tylenol p.r.n. 8. Morphine p.r.n. ALLERGIES: PENICILLIN. SOCIAL HISTORY: Positive tobacco, no ETOH, positive illicit drug use with methamphetamine. FAMILY HISTORY: No history of sudden cardiac or early CAD. REVIEW OF SYSTEMS: As above in HPI. CONSTITUTIONAL: No fevers, chills. PULMONARY: No current respiratory compromise. GASTROINTESTINAL: No vomiting. GENITOURINARY: No hematuria. MUSCULOSKELETAL: Degenerative joint disease. PSYCHIATRIC: The patient denies depression. NEUROLOGIC: CVA, left-sided weakness. CARDIOVASCULAR: Cardiomyopathy. PHYSICAL EXAMINATION: VITAL SIGNS: Temperature 98, blood pressure most recently of 132/77, pulse most recently in the 40s to 50s and sinus rosita with PAC and sinus arrhythmia. He is satting 96% on 2 liters. GENERAL: The patient is alert, awake, in no acute distress. He states he has improvement in speech and improvement in left-sided weakness. NECK: JVP approximately 8 to 9 cm water. CHEST: Upper airway sounds are rhonchorous sounds. HEART: Bradycardic, regular rhythm, normal S1, S2, I/ systolic murmur, laterally displaced PMI. Positive frequent PACs and PVCs. ABDOMEN: Positive bowel sounds, soft. EXTREMITIES: No significant pitting edema, 1+ pulses bilaterally, posterior tibial. LABORATORY DATA: No further labs for my review at this time. IMAGING STUDIES: As above in HPI. No further imaging studies for my review at this time. ELECTROCARDIOGRAM: As above in HPI. No further electrocardiograms for my review at this time. IMPRESSION: 1. Cardiac arrhythmia with bradycardia to the high 30s with sinus bradycardia and possible episodes of junctional rhythm/rate. 2. Cardiomyopathy with severely depressed left ventricular ejection fraction by prior 2D echo 2014. 3. Cerebrovascular accident, acute, status post TPA. 4. Hypertension, labile. 5. Dyslipidemia. 6. Medical noncompliance. 7. Substance abuse with methamphetamines. RECOMMENDATIONS: 1. At this time, would maintain patient on telemetry monitoring to follow rhythm and rate control c losely. 2. Would check serial EKGs to assess for any significant ongoing changes. Thus, an E[facility], EKG for complaints of chest pain or change in rhythm. 3. When the patient is able to take p.o., we will continue the patient's afterload reduction with b enazepril, but we will hold the patient's carvedilol given the bradycardia. Check a TSH to further assess for any possible subclinical hypo or hyperthyroidism contributing to any cardiac arrhythmias. 4. We will check a 2D echo for reassessment of the patient's ejection fraction, wall motion, and an y major valve abnormalities. 5. Continue the patient's Lasix diuresis and check a BMP to further assess the patient's current vo lume status and likely switch IV as necessary until the patient is able to take p.o. 6. Continue to check serial EKGs to assess for any significant ongoing changes. 7. We will hold on any anticoagulation, aspirin, at this time given the patient's recent TPA for CV A and check a fasting lipid panel and adjust the patient's statin therapy as necessary and ongoing n eurology close followup status post tPA. Thank you for allowing me to take part in the care of this patient. I will continue to follow along very closely with you with further recommendations to be made as the patient progresses through his inpatient hospital clinical course. Dictated By: BREONNA LANTIGUA/KIKE Conf#: [id number] DID#: [id number] CC: DANIELA LOPEZ MD;*EndCC*
[2016-10-14] MEDS: SOD CHLORIDE 0.9% 1,000 ML IV SCH (14:32)
--- NOTE | 2016-10-14 15:50 | CONS ---
Date/Time of Note Date/Time of Note DATE: 10/14/16 TIME: 15:45 Assessment/Plan Assessment/Plan Chief Complaint/Hosp Course 61 yo male active smoker history of lung CA, severe cardiomyopathy, substance abuse admitted with left sided weakness s/p IV tPA with improvement of symptoms. Recommendations: continue ICU level care and maintain blood pressure post tPA parameters continue neuro checks per protocol hold antiplatelet and AC up to 24 hours post CVA [address] for evaluation MRI Brain and MRA Head and Neck Repeat ECHO holding antiplatelets/AC maintain euglycemia PT/OT/Speech DVT ppx smoking cessation Problems: Consultation Date/Type/Reason Admit Date/Time Oct 13, 2016 at 23:42 Date of Consultation: Oct 14, 2016 Type of Consultation: Neurology Reason for Consultation CVA Referring Provider: MARISSA LOPEZ Hx of Present Illness 61 year old male hx of COPD, metastatic Lung CA, s/p lobectomy, CVA, TB, cardiomyopathy last EF 20-25% presented with left sided facial weakness dysarthria and left hand weakness. He was evaluated by tele stroke on admission and administered IV tPA per recommendations. CTH showed old left frontal infarct. Post tPA he had improvement in left sided weakness, now back to baseline, admitted to ICU for management. He failed bedside swallow in ED on admission, this afternoon tolerated water well at bedside ordered mechanical soft diet, to be seen by speech tomorrow Social History Smoking Status: Current every day smoker Exam/Review of Systems Vital Signs Vitals Vital Signs Date Time Temp Pulse Resp B/P Pulse Ox O2 Delivery O2 Flow Rate FiO2 10/14/16 14:00 56 14 100/69 95 10/14/16 14:00 Room Air 10/14/16 09:00 2.0 10/14/16 08:00 98.1 10/13/16 21:00 30 Intake and Output 10/13/16 10/13/16 10/14/16 15:00 23:00 07:00 Intake Total 50 ml Output Total 350 ml Balance -300 ml Exam awake and alert oriented x3 disheveled appearance CN: SIMI, VFF, EOMI no nystagmus smile symmetric palate upgoing uvula midline scm/trap intact tongue midline Motor no drift in arms or legs on testing Coordination stable no ataxia Sensory intact Results Result Diagram: 10/13/16209910/13/16 2100 Results 24 hrs Laboratory Tests Test 10/13/16 21:00 10/13/16 21:11 White Blood Count 6.4 Red Blood Count 4.51 L Hemoglobin 13.8 L Hematocrit 41.8 L Mean Corpuscular Volume 92.7 Mean Corpuscular Hemoglobin 30.6 Mean Corpuscular Hemoglobin Concent 33.0 Red Cell Distribution Width 13.6 Platelet Count 159 Mean Platelet Volume 10.5 H Neutrophils % 51.1 Lymphocytes % 30.1 Monocytes % 11.8 H Eosinophils % 6.0 Basophils % 0.8 Nucleated Red Blood Cells % 0.0 Neutrophils # 3.3 Lymphocytes # 1.9 Monocytes # 0.8 Eosinophils # 0.4 Basophils # 0.1 Nucleated Red Blood Cells # 0.0 Prothrombin Time 14.3 H Prothrombin Time Ratio 1.1 INR International Normalized Ratio 1.11 Activated Partial Thromboplast Time 31.5 Sodium Level 143 Potassium Level 4.2 Chloride Level 108 Carbon Dioxide Level 27 Anion Gap 12 Blood Urea Nitrogen 27 H Creatinine 1.04 Glucose Level 75 Hemoglobin A1c 5.7 Calcium Level 9.9 Total Bilirubin 0.2 Direct Bilirubin 0.00 Indirect Bilirubin 0.2 Aspartate Amino Transf (AST/SGOT) 38 Alanine Aminotransferase (ALT/SGPT) 44 Alkaline Phosphatase 102 Troponin I < 0.012 Total Protein 7.9 Albumin 4.5 Globulin 3.40 H Albumin/Globulin Ratio 1.32 Bedside Glucose 80 Medications Medications Current Medications Ondansetron HCl (Zofran Inj) 4 mg Q6H PRN IV NAUSEA AND/OR VOMITING; Start 03/22 at 00:00 Acetaminophen (Tylenol Liquid) 650 mg Q6H PRN PO PAIN LEVEL 1-3 OR FEVER; Start 10/14/16 at 00:00 Morphine Sulfate (morphine) 2 mg Q4H PRN IV PAIN LEVEL 7-10; Start 10/14/16 at 00:00 Lorazepam (Ativan) 1 mg Q2H PRN IV ANXIETY; Start 10/14/16 at 00:00 Docusate Sodium (Colace) 100 mg BID PO ; Start 10/14/16 at 09:00 Atorvastatin Calcium (Lipitor) 20 mg DAILY PO ; Start 10/14/16 at 20:00 Benazepril HCl (Lotensin) 20 mg DAILY PO ; Start 10/14/16 at 09:00 Carvedilol (Coreg) 3.125 mg BID PO ; Start 10/14/16 at 09:00; Status Future Hold Furosemide (Lasix) 40 mg BID@06,18 PO ; Start 10/14/16 at 06:00 Spironolactone 25 mg 25 mg DAILY PO ; Start 10/14/16 at 09:00 Sodium Chloride (NS) 1,000 ml @ 60 mls/hr [id number] IV Last administered on 10/14t 14:32; Admin Dose 60 MLS/HR; Start 10/14/16 at 14:00 RHIANNON QUINTANILLA MD Oct 14, 2016 15:50
--- NOTE | 2016-10-14 16:45 | RADRPT ---
PROCEDURE: MRA Brain. CLINICAL INDICATION: Stroke TECHNIQUE: An MRA of the brain was performed on a GE short bore high-definition 1.5 karen scanner 3-D [id number] MR angiography technique. Source and MIP images were reviewed. COMPARISON: None FINDINGS: There is significant attenuation of the left opercular branches of the left MCA likely related to ol d frontal opercular infarct. There is contour irregularity of of middle M2 segment of left MCA. The internal carotid arteries are patent and normal in caliber. The right middle cerebral and the ante rior cerebral arteries are also patent and normal in caliber with no significant luminal irregularit y or narrowing identified. The vertebral arteries, basilar artery, and superior cerebellar arteries are visualized and normal in appearance. The vertebral artery is dominant. The posterior cerebr al arteries are patent and normal in appearance bilaterally. No aneurysms are detected. IMPRESSION: 1. Significant attenuation of the anterior opercular branches of the left MCA in the distribution o f chronic left frontal opercula infarct. 2. Contour irregularity of middle M2 segment of left MCA. Correlate with presence of new infarct in the left MCA distribution and consider CTA head for further evaluation. 3. No cerebral aneurysms or vascular malformations. RPTAT: PP .Gus Garay MD, Date Time Electronically viewed and signed by .Gus Garay MD, on 10/14/2016 16:45 .O/
[2016-10-14 16:52] LABS: ADD SCAN DIFF NO
[2016-10-14 17:00] LABS: BASOPHIL # 0.1 10^3/ul (0.0-0.1); EOSINOPHILS # 0.4 10^3/ul (0.0-0.5); HEMATOCRIT 44.3 % (42.0-52.0); HEMOGLOBIN 14.2 g/dl (14.0-18.0); LYMPHOCYTES # 1.6 10^3/ul (0.8-2.9); LYMPHOCYTES % 30.4 % (15.0-51.0); MEAN CORPUSCULAR HEMOGLOBIN 30.4 pg (29.0-33.0); MEAN CORPUSCULAR HGB CONC 32.1 g/dl (32.0-37.0); MEAN CORPUSCULAR VOLUME 94.9 fl (82.0-101.0); MEAN PLATELET VOLUME 10.7 fl (7.4-10.4); MONOCYTE # 0.5 10^3/ul (0.3-0.9); MONOCYTES % 10.5 % (0.0-11.0); NEUTROPHIL # 2.6 10^3/ul (1.6-7.5); NEUTROPHILS % 50.9 % (39.0-77.0); PLATELET COUNT 144 10^3/UL (140-415); RED BLOOD COUNT 4.67 10^6/ul (4.70-6.10); RED CELL DISTRIBUTION WIDTH 13.8 % (11.5-14.5); WHITE BLOOD COUNT 5.1 10^3/ul (4.8-10.8)
[2016-10-14 17:15] LABS: ALBUMIN 4.2 g/dl (3.3-4.9); ALBUMIN/GLOBULIN RATIO 1.31; BILIRUBIN,INDIRECT 0.3 mg/dl (0-1.1); BILIRUBIN,TOTAL 0.3 mg/dl (0.2-1.3); CALCIUM 9.6 mg/dl (8.4-10.2); CREATININE 0.97 mg/dl (0.61-1.24); POTASSIUM 4.7 mmol/L (3.5-5.1); TOTAL PROTEIN 7.4 g/dl (6.1-8.1)
[2016-10-14 17:37] LABS: ADD UMIC NO; UR BILIRUBIN (Dip) NEGATIVE (NEGATIVE); UR BLOOD (Dip) NEGATIVE (NEGATIVE); UR CLARITY CLEAR (CLEAR); UR COLOR LT. YELLOW (YELLOW); UR GLUCOSE (Dip) NEGATIVE (NEGATIVE); UR KETONES (Dip) NEGATIVE (NEGATIVE); UR LEUKOCYTE ESTERASE (Dip) NEGATIVE (NEGATIVE); UR NITRITE (Dip) NEGATIVE (NEGATIVE); UR TOTAL PROTEIN (Dip) NEGATIVE (NEGATIVE); UR UROBILINOGEN (Dip) 0.2 E.U./dL (0.1-1.0)
[2016-10-14 18:05] LABS: CANNABINOIDS Positive (NEGATIVE)
[2016-10-14 18:13] LABS: BARBITURATES Negative (NEGATIVE); BENZODIAZEPINES Negative (NEGATIVE); COCAINE Negative (NEGATIVE); OPIATES Negative (NEGATIVE)
[2016-10-14 19:02] LABS: THYROID STIMULATING HORMONE 1.7 MIU/L (0.465-4.680)
[2016-10-14] MEDS: ATORVASTATIN 20 MG TAB PO SCH (21:39)
[2016-10-15] VITALS (20 sets, daily range): BP systolic 113–150; BP diastolic 58–101; PULSE 68–90; RESP 14–26
--- NOTE | 2016-10-15 01:49 | CONS ---
DATE OF ADMISSION: 10/13/2016 DATE OF CONSULTATION: 10/14/2016 IINFECTIOUS DISEASE CONSULTATION DICTATED FOR: Dr. Alton Villalobos. REQUESTING PHYSICIAN: Dr. Joce Lopez. REASON FOR CONSULTATION: Evaluation of tuberculosis, "latent." HISTORY OF PRESENT ILLNESS: The patient is a 61-year-old white male who presented on 10/13/2016 wit h a chief complaint of acute onset of left-sided weakness and left mouth droop 30 minutes prior to a dmission. The patient was brought to the hospital by paramedics. He has had a past history of prio r TIA, probably resulting in a left opercular frontal lobe infarction. Upon arrival, he was noted t o be in atrial fibrillation. His white blood cell count was 6400, hemoglobin 13.8 g. The patient i s known to have a 20% to 30% ejection fraction. The chest x-ray revealed left apical and pleural sc arring. There was no mention of any activity. The patient states he has a cough sometimes, but he smokes cigarettes and smokes marijuana, also. He does not cough up any blood, did not have night swe ats. He is thin, but has reason for any weight loss he might have had sustained. HE IS ALLERGIC TO PENICILLIN. MEDICATIONS: Include: 1. Ethambutol. 2. Rifampin. 3. Carvedilol. 4. Atorvastatin. 5. Benazepril. 6. Furosemide. 7. Spironolactone. PAST MEDICAL HISTORY: Besides the TIA and the cardiomyopathy and hypertension, includes carcinoma o f the lung which was resected and metastasized to the kidney. This was resected. Also, he states he had an esophageal tumor or metastasis, I am not certain which, that he was treated with radiation an d surgery and he recovered from that, also. He was told that he had latent tuberculosis in 2013 and has been taking rifampin and ethambutol during that period, at first rather irregularly and then wh en he got his medications on a cardboard card with the medicine in the bubbles, he has been very reg ular about it. He has no cough, sputum or wheezing, other than when he is smoking cigarettes or daysi joshua. He has no night sweats and his course. Chest x-ray does not show anything active. PHYSICAL EXAMINATION GENERAL: Reveals a rather thin, lying talkative white male who talks with his head down and his eye s closed a lot of the time. He is quite happy that he had thrombolysis with prompt clearing of his s troke symptoms. VITAL SIGNS: Stable. HEENT: The pupils are constricted and react to light. His speech is clear. CHEST: Clear. HEART: Regular without gallop, murmur or rub. ABDOMEN: Soft, scaphoid. No palpable organs or masses. There are operative scars present. EXTREMITIES: Reveal an IV in the right hand. There is no peripheral edema. INITIAL IMPRESSION: 1. A transient ischemic attack with lysis. 2. Latent TB treated since 2013. 3. Old cerebrovascular accident, right frontal opercular region. 4. Atrial fibrillation. 5. Tobacco use. 6. Hypertension/congestive heart failure. 7. 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 RECOMMENDATIONS: I would suggest testing the patient for AFB and if he has 1 sputum which is clear, you can discontinue the isolation. I think there is no chance that this patient is contagious and I am skeptical that the patient even needs to be taking any kind of medication. This may be because dia mcintyre was suspected of having HIV disease, which he states that he does not have. Dictated By: Que BLOOM/KIKE Conf#: [id number] DID#: [id number]
[2016-10-15] MEDS: FUROSEMIDE 40 MG TAB PO SCH ×2 (06:37→17:41)
[2016-10-15 06:42] LABS: ADD SCAN DIFF NO
[2016-10-15 07:01] LABS: BASOPHILS % 0.8 % (0.0-2.0); EOSINOPHILS # 0.4 10^3/ul (0.0-0.5); EOSINOPHILS % 7.5 % (0.0-7.0); HEMATOCRIT 45.7 % (42.0-52.0); HEMOGLOBIN 14.6 g/dl (14.0-18.0); LYMPHOCYTES # 1.3 10^3/ul (0.8-2.9); LYMPHOCYTES % 25.2 % (15.0-51.0); MEAN CORPUSCULAR HEMOGLOBIN 29.7 pg (29.0-33.0); MEAN CORPUSCULAR HGB CONC 31.9 g/dl (32.0-37.0); MEAN CORPUSCULAR VOLUME 92.9 fl (82.0-101.0); MEAN PLATELET VOLUME 10.6 fl (7.4-10.4); MONOCYTE # 0.6 10^3/ul (0.3-0.9); MONOCYTES % 10.6 % (0.0-11.0); NEUTROPHIL # 2.9 10^3/ul (1.6-7.5); NEUTROPHILS % 55.5 % (39.0-77.0); PLATELET COUNT 154 10^3/UL (140-415); RED BLOOD COUNT 4.92 10^6/ul (4.70-6.10); RED CELL DISTRIBUTION WIDTH 13.6 % (11.5-14.5); WHITE BLOOD COUNT 5.2 10^3/ul (4.8-10.8)
[2016-10-15 07:19] LABS: CALCIUM 9.4 mg/dl (8.4-10.2); CREATININE 0.94 mg/dl (0.61-1.24)
[2016-10-15] MEDS: SOD CHLORIDE 0.9% 1,000 ML IV SCH (07:30)
--- NOTE | 2016-10-15 08:33 | RADRPT ---
PROCEDURE: MRI Brain without contrast. CLINICAL INDICATION: Stroke. TECHNIQUE: An MRI of the brain was performed utilizing the following sequences: Sagittal and axial T1 weighted, axial T2 weighted, axial diffusion weighted with ADC mapping, coronal GRE, and axial F LAIR. COMPARISON: Brain CT 10/13/2016. FINDINGS: There is approximately 3.1 cm area of restricted diffusion in the posterior right frontal lobe as we ll as smaller area in the right parietal lobe consistent with acute/recent infarcts. Left frontal operculum chronic infarct is also noted. No hypointense signal abnormalities are seen on the GRE images to suggest the presence of blood degr adation products. There is no evidence of intracranial hemorrhage, mass effect, or midline shift. N o extra-axial fluid collections are seen. The ventricles and sulci are mildly to moderately enlarged indicative of volume loss. There are mild scattered foci of T2 FLAIR hyperintensity in the periventricular, deep, and subcortic al white matter, which are nonspecific in etiology but likely reflect chronic small vessel ischemic changes. No abnormal intracranial vascular flow void is noted. The visualized paranasal sinuses straight mild scattered mucosal thickening with small fluid level in the right sphenoid sinus. Small 2 x 0.6 cm r ight frontal scalp lipoma is noted. IMPRESSION: 1. Acute/recent infarcts in the posterior right frontal lobe as well as smaller area in the right p arietal lobe. 2. Left frontal operculum chronic infarct. 3. Mild chronic small vessel ischemic changes. 4. Mild to moderate generalized cerebral volume loss. 5. Mild paranasal sinus disease with a small fluid level in the right sphenoid sinus, correlate for acute sinusitis. A call report was made and above findings were discussed and acknowledged by patient's nurse EMMANUEL goetz on 10/15/2016 8:00 AM to relay to responsible physician. RPTAT: HH .Anne Weller MD, MD Date Time Electronically viewed and signed by .Anne Weller MD, MD on 10/15/2016 08:33 .N/
[2016-10-15] MEDS: ATORVASTATIN 20 MG TAB PO SCH (08:36)
[2016-10-15] MEDS: DOCUSATE SODIUM 100 MG CAP PO SCH ×2 (08:36→21:00)
[2016-10-15] MEDS: SPIRONOLACTONE 25 MG TAB PO SCH (08:36)
[2016-10-15] MEDS: BENAZEPRIL 20 MG TAB PO SCH (08:36)
--- NOTE | 2016-10-15 12:05 | RADRPT ---
PROCEDURE: CT Brain without contrast. CLINICAL INDICATION: Stroke; t-PA; Neurologic deficit TECHNIQUE: A CT of the brain was performed on multidetector high-resolution CT scanner utilizing a xial sections from the skull base through the vertex without contrast. One or more of the following dose reduction techniques were used: Automated exposure control, Adjustment of the mA and/or kV acc ording to patient size, and/or use of iterative reconstruction technique. DOSE: CTDI = 45 mGy and the DLP = 810 mGy-cm. COMPARISON: Brain MRA yesterday FINDINGS: Continue evolution of the recent right posterior frontal, parietal, and right opercular infarcts. No acute hemorrhage, significant mass effect or midline shift. Chronic left inferior frontal cortical encephalomalacia. Patchy hypoattenuation of the white matter. Vascular calcifications. The ventricles are stable size. No significant opacification of the visualized paranasal sinuses or mastoids. IMPRESSION: Continue evolution of the recent right posterior frontal, parietal, and right opercular infarcts. No acute hemorrhage or significant mass effect. Chronic left inferior frontal infarct. Mild chronic microvascular disease. RPTAT: AA .Hari Quintero MD, MD Date Time Electronically viewed and signed by .Hari Quintero MD, MD on 10/15/2016 12:04 .T/
--- NOTE | 2016-10-15 12:21 | CONS ---
Date/Time of Note Date/Time of Note DATE: 10/15/16 TIME: : Assessment/Plan Assessment/Plan Additional Assessment/Plan Chest x-ray was reviewed from admission which is showing severe volume loss on the left side with mediastinal shift towards the left. The findings are unchanged from a chest x-ray done on 03 Oct 2014. Assessment recommendations; next 1. Patient admitted with acute CVA status post TPA with marked clinical improvement. 2. History of left lung cancer status post lobectomy with volume loss and contraction changes which are under changed compared to a September 2014 chest x-ray. 3. History of multiple TIAs. 4. Possible underlying COPD. Continue current treatment. Clinically there is no suspicion of any active pulmonary tuberculosis or pneumonia at this point. Patient may be removed from isolation. Consultation Date/Type/Reason Admit Date/Time Oct 13, 2016 at 23:42 Date of Consultation: Oct 15, 2016 Type of Consultation: Pulmonary/critical care Reason for Consultation Pulmonary consultations requested for evaluation of possible tuberculosis. Next History of presenting any; patient is a 61-year-old white male who came into the emergency room with complaints of left-sided weakness patient was diagnosed with acute CVA and received TPA with marked improvement in symptoms. A chest x- ray was done which is showing severe volume loss in the left lung and pulmonary consultations have been requested for evaluation of possible pulmonary tuberculosis. Patient currently doing very well and according to him he is not reporting any residual motor deficit. Denies any shortness of breath, chest pain, coughing sputum production fever chills. Past medical history; next 1. Patient with a history of left lung cancer status post lobectomy 2. History of positive PPD. 3. History of COPD. 4. Status post chemotherapy radiation as well. 5. Metastatic disease to the kidneys. Medications; reviewed. Allergies; penicillin. Social history; patient is a 77-17-sxqo-year smoking history. He just recently stopped smoking. Family history; noncontributory. Occupational history; patient is on disability. Review of systems; denies any headache, visual changes. Any seizures. Any chest pain, shortness of breath, cough, sputum production or hemoptysis. Any fever chills. Any night sweats, any weight loss. Any GI or urinary symptoms. Any edema. Orthopnea. Any skin changes. Sandra; elderly male, awake alert currently in no distress. Eating lunch on bed. Social History Smoking Status: Current every day smoker Exam/Review of Systems Vital Signs Vitals Vital Signs Date Time Temp Pulse Resp B/P Pulse Ox O2 Delivery O2 Flow Rate FiO2 10/15/16 10:00 24 113/83 94 Room Air 10/15/16 09:00 79 10/15/16 08:00 98.1 10/14/16 16:59 21 10/14/16 09:00 2.0 Intake and Output 10/14/16 10/14/16 10/15/16 15:00 23:00 07:00 Intake Total 1060 ml 300 ml 240 ml Output Total 300 ml 625 ml 650 ml Balance 760 ml -325 ml -410 ml Exam HEENT exam is; supple neck, no JVD. No lymphadenopathy. Midline trachea. No thyromegaly. Patient has multiple missing teeth. Pupils are equal and reactive to light bilaterally. Chest examination; diminished breath sound left lung. There is a well-healed left lateral thoracotomy scar. Right lung is clear to auscultation. S1-S2 audible, no murmurs. Regular rhythm. Abdomen examination; soft, nontender. No organomegaly. Bowel sounds audible. Extremity examination; no peripheral edema. No clubbing. TRADITIONAL [employer] PRACTITIONER examination; no focal deficit. Results Result Diagram: 10/15/16 0545 10/15/16 0545 Results 24 hrs Laboratory Tests Test 10/14/16 14:50 10/14/16 16:45 10/14/16 18:47 10/15/16 05:45 Urine Color LT. YELLOW Urine Clarity CLEAR Urine pH 5.5 Urine Specific [place] 1.025 Urine Ketones NEGATIVE Urine Nitrite NEGATIVE Urine Bilirubin NEGATIVE Urine Urobilinogen 0.2 E.U./dL Urine Leukocyte Esterase NEGATIVE Urine Hemoglobin NEGATIVE Urine Glucose NEGATIVE Urine Total Protein NEGATIVE Urine Opiates Screen Negative Urine Barbiturates Negative Urine Amphetamines Screen POSITIVE Urine Benzodiazepines Screen Negative Urine Cocaine Screen Negative Urine Cannabinoids Positive White Blood Count 5.1 # 5.2 Red Blood Count 4.67 L 4.92 Hemoglobin 14.2 14.6 Hematocrit 44.3 45.7 Mean Corpuscular Volume 94.9 92.9 Mean Corpuscular Hemoglobin 30.4 29.7 Mean Corpuscular Hemoglobin Concent 32.1 31.9 L Red Cell Distribution Width 13.8 13.6 Platelet Count 144 154 Mean Platelet Volume 10.7 H 10.6 H Neutrophils % 50.9 55.5 Lymphocytes % 30.4 25.2 Monocytes % 10.5 10.6 Eosinophils % 7.0 7.5 H Basophils % 1.0 0.8 Nucleated Red Blood Cells % 0.0 0.0 Neutrophils # 2.6 2.9 Lymphocytes # 1.6 1.3 Monocytes # 0.5 0.6 Eosinophils # 0.4 0.4 Basophils # 0.1 0.0 Nucleated Red Blood Cells # 0.0 0.0 Sodium Level 140 142 Potassium Level 4.7 4.0 Chloride Level 107 107 Carbon Dioxide Level 28 28 Anion Gap 10 11 Blood Urea Nitrogen 23 H 25 H Creatinine 0.97 0.94 Glucose Level 76 89 Hemoglobin A1c 5.9 Calcium Level 9.6 9.4 Total Bilirubin 0.3 Direct Bilirubin 0.00 Indirect Bilirubin 0.3 Aspartate Amino Transf (AST/SGOT) 37 Alanine Aminotransferase (ALT/SGPT) 40 Alkaline Phosphatase 104 B-Type Natriuretic Peptide 4670 H Total Protein 7.4 Albumin 4.2 Globulin 3.20 Albumin/Globulin Ratio 1.31 Thyroid Stimulating Hormone (TSH) 1.700 Troponin I 0.014 Medications Medications Current Medications Ondansetron HCl (Zofran Inj) 4 mg Q6H PRN IV NAUSEA AND/OR VOMITING; Start 03/22 at 00:00 Acetaminophen (Tylenol Liquid) 650 mg Q6H PRN PO PAIN LEVEL 1-3 OR FEVER; Start 10/14/16 at 00:00 Morphine Sulfate (morphine) 2 mg Q4H PRN IV PAIN LEVEL 7-10; Start 10/14/16 at 00:00 Lorazepam (Ativan) 1 mg Q2H PRN IV ANXIETY; Start 10/14/16 at 00:00 Docusate Sodium (Colace) 100 mg BID PO Last administered on 10/15/16 08:36; Admin Dose 100 MG; Start 10/14/16 at 09:00 Atorvastatin Calcium (Lipitor) 20 mg DAILY PO Last administered on 10/15/16 08 :36; Admin Dose 20 MG; Start 10/14/16 at 20:00 Benazepril HCl (Lotensin) 20 mg DAILY PO Last administered on 10/15/16 08:36; Admin Dose 20 MG; Start 10/14/16 at 09:00 Carvedilol (Coreg) 3.125 mg BID PO ; Start 10/14/16 at 09:00; Status Future Hold Furosemide (Lasix) 40 mg BID@06,18 PO Last administered on 10/15/16 06:37; Admin Dose 40 MG; Start 10/14/16 at 06:00 Spironolactone 25 mg 25 mg DAILY PO Last administered on 10/15/16 08:36; Admin Dose 25 MG; Start 10/14/16 at 09:00 Sodium Chloride (NS) 1,000 ml @ 60 mls/hr [id number] IV Last administered on 10/14 14:32; Admin Dose 60 MLS/HR; Start 10/14/16 at 14:00 ANNAMARIA OSORIO Oct 15, 2016 12:21
--- NOTE | 2016-10-15 12:23 | CONS ---
Date/Time of Note Date/Time of Note DATE: 10/15/16 TIME: :17 Consult Date/Type/Reason Admit Date/Time Oct 13, 2016 at 23:42 Initial Consult Date 10/14/16 Type of Consultation: Neurology Reason for Consultation CVA Ordering Provider: MARISSA LOPEZ Subjective remains in ICU, no issues overnight MRI shows acute infarct posterior right frontal lobe, right parietal, left operculum small infarct Objective Vital Signs Date Time Temp Pulse Resp B/P Pulse Ox O2 Delivery O2 Flow Rate FiO2 10/15/16 10:00 24 113/83 94 Room Air 10/15/16 09:00 79 10/15/16 08:00 98.1 10/14/16 16:59 21 10/14/16 09:00 2.0 Intake and Output 10/14/16 10/14/16 10/15/16 15:00 23:00 07:00 Intake Total 1060 ml 300 ml 240 ml Output Total 300 ml 625 ml 650 ml Balance 760 ml -325 ml -410 ml Exam awake alert oriented x3 disheveled appearance follows commands no aphasia CN: SIMI, VFF, EOMI no nystagmus V1-3 intact no facial asymmetry palate upgoing uvula midline scm/trap intact tongue midline Motor: no drift in arms or legs Sensory intact throughout Coord. stable Results/Medications Result Diagram: 10/15/16 0545 10/15/16 0545 Results 24 hrs Laboratory Tests Test 10/14/16 14:50 10/14/16 16:45 10/14/16 18:47 10/15/16 05:45 Urine Color LT. YELLOW Urine Clarity CLEAR Urine pH 5.5 Urine Specific [place] 1.025 Urine Ketones NEGATIVE Urine Nitrite NEGATIVE Urine Bilirubin NEGATIVE Urine Urobilinogen 0.2 E.U./dL Urine Leukocyte Esterase NEGATIVE Urine Hemoglobin NEGATIVE Urine Glucose NEGATIVE Urine Total Protein NEGATIVE Urine Opiates Screen Negative Urine Barbiturates Negative Urine Amphetamines Screen POSITIVE Urine Benzodiazepines Screen Negative Urine Cocaine Screen Negative Urine Cannabinoids Positive White Blood Count 5.1 # 5.2 Red Blood Count 4.67 L 4.92 Hemoglobin 14.2 14.6 Hematocrit 44.3 45.7 Mean Corpuscular Volume 94.9 92.9 Mean Corpuscular Hemoglobin 30.4 29.7 Mean Corpuscular Hemoglobin Concent 32.1 31.9 L Red Cell Distribution Width 13.8 13.6 Platelet Count 144 154 Mean Platelet Volume 10.7 H 10.6 H Neutrophils % 50.9 55.5 Lymphocytes % 30.4 25.2 Monocytes % 10.5 10.6 Eosinophils % 7.0 7.5 H Basophils % 1.0 0.8 Nucleated Red Blood Cells % 0.0 0.0 Neutrophils # 2.6 2.9 Lymphocytes # 1.6 1.3 Monocytes # 0.5 0.6 Eosinophils # 0.4 0.4 Basophils # 0.1 0.0 Nucleated Red Blood Cells # 0.0 0.0 Sodium Level 140 142 Potassium Level 4.7 4.0 Chloride Level 107 107 Carbon Dioxide Level 28 28 Anion Gap 10 11 Blood Urea Nitrogen 23 H 25 H Creatinine 0.97 0.94 Glucose Level 76 89 Hemoglobin A1c 5.9 Calcium Level 9.6 9.4 Total Bilirubin 0.3 Direct Bilirubin 0.00 Indirect Bilirubin 0.3 Aspartate Amino Transf (AST/SGOT) 37 Alanine Aminotransferase (ALT/SGPT) 40 Alkaline Phosphatase 104 B-Type Natriuretic Peptide 4670 H Total Protein 7.4 Albumin 4.2 Globulin 3.20 Albumin/Globulin Ratio 1.31 Thyroid Stimulating Hormone (TSH) 1.700 Troponin I 0.014 Medications Current Medications Ondansetron HCl (Zofran Inj) 4 mg Q6H PRN IV NAUSEA AND/OR VOMITING; Start 03/22 at 00:00 Acetaminophen (Tylenol Liquid) 650 mg Q6H PRN PO PAIN LEVEL 1-3 OR FEVER; Start 10/14/16 at 00:00 Morphine Sulfate (morphine) 2 mg Q4H PRN IV PAIN LEVEL 7-10; Start 10/14/16 at 00:00 Lorazepam (Ativan) 1 mg Q2H PRN IV ANXIETY; Start 10/14/16 at 00:00 Docusate Sodium (Colace) 100 mg BID PO Last administered on 10/15/16 08:36; Admin Dose 100 MG; Start 10/14/16 at 09:00 Atorvastatin Calcium (Lipitor) 20 mg DAILY PO Last administered on 10/15/16 08 :36; Admin Dose 20 MG; Start 10/14/16 at 20:00 Benazepril HCl (Lotensin) 20 mg DAILY PO Last administered on 10/15/16 08:36; Admin Dose 20 MG; Start 6/11/17 at 09:00 Carvedilol (Coreg) 3.125 mg BID PO ; Start 10/14/16 at 09:00; Status Future Hold Furosemide (Lasix) 40 mg BID@06,18 PO Last administered on 10/15/16 06:37; Admin Dose 40 MG; Start 10/14/16 at 06:00 Spironolactone 25 mg 25 mg DAILY PO Last administered on 10/15/16 08:36; Admin Dose 25 MG; Start 10/14/16 at 09:00 Sodium Chloride (NS) 1,000 ml @ 60 mls/hr [id number] IV Last administered on 10/14 14:32; Admin Dose 60 MLS/HR; Start 10/14/16 at 14:00 Assessment/Plan Chief Complaint/Hosp Course 61 yo male active smoker history of lung CA, severe cardiomyopathy, substance abuse admitted with left sided weakness s/p IV tPA with improvement of symptoms. MRI shows acute infarcts Right MCA territory and tiny left insular infarct seen MRA Head suggestive of irregular M2 branch Left MCA MRA Neck no stenosis Recommendations: Repeat ECHO done this am pending review- bilateral infarct pattern is suggestive of a cardioembolic process given severely reduced EF may need anticoagulation for now will start aspirin maintain euglycemia PT/OT/Speech DVT ppx smoking cessation/abstinence from polysubstance abuse counseled patient Problems: RHIANNON QUINTANILLA MD Oct 15, 2016 12:23
--- NOTE | 2016-10-15 12:56 | PN ---
Date/Time of Note Date/Time of Note DATE: 10/15/16 TIME: 12:52 Assessment/Plan VTE Prophylaxis VTE Prophylaxis Intervention: other Lines/Catheters IV [facility]from [facility] Saline Lock Urinary Cath still in place: No Assessment/Plan Chief Complaint/Hosp Course Assessment and plan 1. Acute on chronic CVA status post TPA. Neurologist consulted. Continue aspirin and statin PT OT eval and treat 2. history of recurrent TIA. As above 3. History of severe cardiopathy with EF of 20-25%. Will get motor patrol operator to follow. Follow-up on echocardiogram. Continue on cardiovascular medications. (Beta-marlon on hold due to bradycardia) 4. Bradycardia. Utility Porter follow. Continue telemetry monitoring. 5. History of COPD. Will provide bronchodilators as needed. Continue on O2. 6. History of latent TB. Infectious disease and soil conservation aide has been consulted, no evidence of acute TB on chest x-ray. Patient may be off isolation as per infectious disease 7. History of drug abuse. Will get aids social worker to follow. Cessation was advised. 8. Suspect history of medical noncompliance. Patient educated concerning issue and consequences of medical noncompliance. 9. Neck mass/lipoma. Chronic, patient has had a full workup as outpatient Disposition and plan: Follow-up with rehab services. Transfer to telemetry floor employee benefits manager consult for placement Problems: Subjective 24 Hr Interval Summary Free Text/Dictation Denies of any chest pain or shortness of breath Denies having any weakness in his upper or lower extremity No slurred speech Tolerating oral intake without any difficulty Exam/Review of Systems Vital Signs Vitals Vital Signs Date Time Temp Pulse Resp B/P Pulse Ox O2 Delivery O2 Flow Rate FiO2 10/15/16 10:00 24 113/83 94 Room Air 10/15/16 09:00 79 10/15/16 08:00 98.1 10/14/16 16:59 21 10/14/16 09:00 2.0 Intake and Output 10/14/16 10/14/16 10/15/16 15:00 23:00 07:00 Intake Total 1060 ml 300 ml 240 ml Output Total 300 ml 625 ml 650 ml Balance 760 ml -325 ml -410 ml Exam General: The patient is well-developed, Not in acute distress. HEENT: Atraumatic, normocephalic. The pupils are equal and round . Neck: Supple , lipoma in left cervical region Chest: Normal expansion of the thorax during inspiration Lungs: Clear to auscultation bilaterally Heart: Normal S1-S2, Regular rhythm and rate. Abdomen: Soft , nontender, nondistended , bowel sounds are present. Extremities: Normal to inspection, no edema no cyanosis Neurologic: Normal mental status,The patient is awake, alert and oriented . Results Result Diagram: 10/15/16 0545 10/15/16 0545 Results 24 hrs Laboratory Tests Test 10/14/16 14:50 10/14/16 16:45 10/14/16 18:47 10/15/16 05:45 Urine Color LT. YELLOW Urine Clarity CLEAR Urine pH 5.5 Urine Specific [place] 1.025 Urine Ketones NEGATIVE Urine Nitrite NEGATIVE Urine Bilirubin NEGATIVE Urine Urobilinogen 0.2 E.U./dL Urine Leukocyte Esterase NEGATIVE Urine Hemoglobin NEGATIVE Urine Glucose NEGATIVE Urine Total Protein NEGATIVE Urine Opiates Screen Negative Urine Barbiturates Negative Urine Amphetamines Screen POSITIVE Urine Benzodiazepines Screen Negative Urine Cocaine Screen Negative Urine Cannabinoids Positive White Blood Count 5.1 # 5.2 Red Blood Count 4.67 L 4.92 Hemoglobin 14.2 14.6 Hematocrit 44.3 45.7 Mean Corpuscular Volume 94.9 92.9 Mean Corpuscular Hemoglobin 30.4 29.7 Mean Corpuscular Hemoglobin Concent 32.1 31.9 L Red Cell Distribution Width 13.8 13.6 Platelet Count 144 154 Mean Platelet Volume 10.7 H 10.6 H Neutrophils % 50.9 55.5 Lymphocytes % 30.4 25.2 Monocytes % 10.5 10.6 Eosinophils % 7.0 7.5 H Basophils % 1.0 0.8 Nucleated Red Blood Cells % 0.0 0.0 Neutrophils # 2.6 2.9 Lymphocytes # 1.6 1.3 Monocytes # 0.5 0.6 Eosinophils # 0.4 0.4 Basophils # 0.1 0.0 Nucleated Red Blood Cells # 0.0 0.0 Sodium Level 140 142 Potassium Level 4.7 4.0 Chloride Level 107 107 Carbon Dioxide Level 28 28 Anion Gap 10 11 Blood Urea Nitrogen 23 H 25 H Creatinine 0.97 0.94 Glucose Level 76 89 Hemoglobin A1c 5.9 Calcium Level 9.6 9.4 Total Bilirubin 0.3 Direct Bilirubin 0.00 Indirect Bilirubin 0.3 Aspartate Amino Transf (AST/SGOT) 37 Alanine Aminotransferase (ALT/SGPT) 40 Alkaline Phosphatase 104 B-Type Natriuretic Peptide 4670 H Total Protein 7.4 Albumin 4.2 Globulin 3.20 Albumin/Globulin Ratio 1.31 Thyroid Stimulating Hormone (TSH) 1.700 Troponin I 0.014 Medications Medications Current Medications Ondansetron HCl (Zofran Inj) 4 mg Q6H PRN IV NAUSEA AND/OR VOMITING; Start 03/22 at 00:00 Acetaminophen (Tylenol Liquid) 650 mg Q6H PRN PO PAIN LEVEL 1-3 OR FEVER; Start 10/14/16 at 00:00 Morphine Sulfate (morphine) 2 mg Q4H PRN IV PAIN LEVEL 7-10; Start 10/14/16 at 00:00 Lorazepam (Ativan) 1 mg Q2H PRN IV ANXIETY; Start 10/14/16 at 00:00 Docusate Sodium (Colace) 100 mg BID PO Last administered on 10/15/16 08:36; Admin Dose 100 MG; Start 10/14/16 at 09:00 Atorvastatin Calcium (Lipitor) 20 mg DAILY PO Last administered on 10/15/16 08 :36; Admin Dose 20 MG; Start 10/14/16 at 20:00 Benazepril HCl (Lotensin) 20 mg DAILY PO Last administered on 10/15/16 08:36; Admin Dose 20 MG; Start 10/14/16 at 09:00 Carvedilol (Coreg) 3.125 mg BID PO ; Start 10/14/16 at 09:00; Status Future Hold Furosemide (Lasix) 40 mg BID@06,18 PO Last administered on 10/15/16 06:37; Admin Dose 40 MG; Start 10/14/16 at 06:00 Spironolactone 25 mg 25 mg DAILY PO Last administered on 10/15/16 08:36; Admin Dose 25 MG; Start 10/14/16 at 09:00 Sodium Chloride (NS) 1,000 ml @ 60 mls/hr [id number] IV Last administered on 10/14 14:32; Admin Dose 60 MLS/HR; Start 10/14/16 at 14:00 Aspirin (Halfprin) 81 mg DAILY PO ; Start 10/15/16 at 12:30 MARCELO JURADO MD Oct 15, 2016 12:56
--- NOTE | 2016-10-15 13:06 | RADRPT ---
PROCEDURE: Targeted sonogram of the left neck. CLINICAL INDICATION: Palpable mass of the left neck. TECHNIQUE: Targeted imaging was performed over the area of interest. COMPARISON: No. FINDINGS: A subcutaneous well marginated echogenic mass measuring 4.2 cm in length by 0.6 by its 4.2 cm is love ntified consistent with a subcutaneous lipoma. IMPRESSION: 1. 4.2 x 4.2 x 0.6 cm echogenic well marginated left neck subcutaneous mass suspicious for a lipoma at the site of palpability. RPTAT:AAJJ Physician Chacorta Date Time Electronically viewed and signed by Physician Chacorta on 10/15/2016 13:05 /
[2016-10-15] MEDS: ASPIRIN (EC) 81 MG TAB PO SCH (13:19)
--- NOTE | 2016-10-15 14:20 | CONS ---
Date/Time of Note Date/Time of Note DATE: 10/15/16 TIME: 14:16 Assessment/Plan Assessment/Plan Chief Complaint/Hosp Course IMPRESSION: 1. Cardiac arrhythmia with bradycardia to the high 30s with sinus bradycardia and possible episodes of junctional rhythm/rate. 2. Cardiomyopathy with severely depressed left ventricular ejection fraction by prior 2D echo 2014. 3. Cerebrovascular accident, acute, status post TPA. 4. Hypertension, labile. 5. Dyslipidemia. 6. Medical noncompliance. 7. Substance abuse with methamphetamines. 8.Positive troponin-now trended negtaive. Likley type 2 infarct Recc: -Tele -serial ecg's -Continue asa -add plavix to maximize medical therapy -Continue statin -Holding BB given prior rosita -Continue acei Problems: Consultation Date/Type/Reason Admit Date/Time Oct 13, 2016 at 23:42 Initial Consult Date 10/15/16 Type of Consultation: cardiology Reason for Consultation positive troponin Referring Provider: MARISSA LOPEZ Exam/Review of Systems Vital Signs Vitals Vital Signs Date Time Temp Pulse Resp B/P Pulse Ox O2 Delivery O2 Flow Rate FiO2 10/15/16 12:00 76 10/15/16 10:00 24 113/83 94 Room Air 10/15/16 08:00 98.1 10/14/16 16:59 21 10/14/16 09:00 2.0 Intake and Output 10/14/16 10/14/16 10/15/16 15:00 23:00 07:00 Intake Total 1060 ml 300 ml 240 ml Output Total 300 ml 625 ml 650 ml Balance 760 ml -325 ml -410 ml Exam Review of Systems: CONSTITUTIONAL: No fevers, chills. PULMONARY: No sob CARDIOVASCULAR: No chest pain/palpitations GASTROINTESTINAL: No nausea/vomiting. GENITOURINARY: No hematuria/dysuria. MUSCULOSKELETAL: No myagias/arthalgias. PSYCHIATRIC: The patient denies depression. NEUROLOGIC: improving L sided weakness Constitutional: alert Psych: no complaints Head: normocephalic ENMT: mucosa pink and moist Neck: jvd (9 cm water), supple Respiratory: diminished breath sounds (at bases/B) Cardiovascular: other (+ PAC's), regular rate and rhythm Gastrointestinal: non-tender, soft Musculoskeletal: muscle tone (normal) Extremities: edema (none) Neurological: other (L sided weakness improving) Results Result Diagram: 10/15/16 0545 10/15/16 0545 Results 24 hrs Laboratory Tests Test 10/14/16 14:50 10/14/16 16:45 10/14/16 18:47 10/15/16 05:45 Urine Color LT. YELLOW Urine Clarity CLEAR Urine pH 5.5 Urine Specific [place] 1.025 Urine Ketones NEGATIVE Urine Nitrite NEGATIVE Urine Bilirubin NEGATIVE Urine Urobilinogen 0.2 E.U./dL Urine Leukocyte Esterase NEGATIVE Urine Hemoglobin NEGATIVE Urine Glucose NEGATIVE Urine Total Protein NEGATIVE Urine Opiates Screen Negative Urine Barbiturates Negative Urine Amphetamines Screen POSITIVE Urine Benzodiazepines Screen Negative Urine Cocaine Screen Negative Urine Cannabinoids Positive White Blood Count 5.1 # 5.2 Red Blood Count 4.67 L 4.92 Hemoglobin 14.2 14.6 Hematocrit 44.3 45.7 Mean Corpuscular Volume 94.9 92.9 Mean Corpuscular Hemoglobin 30.4 29.7 Mean Corpuscular Hemoglobin Concent 32.1 31.9 L Red Cell Distribution Width 13.8 13.6 Platelet Count 144 154 Mean Platelet Volume 10.7 H 10.6 H Neutrophils % 50.9 55.5 Lymphocytes % 30.4 25.2 Monocytes % 10.5 10.6 Eosinophils % 7.0 7.5 H Basophils % 1.0 0.8 Nucleated Red Blood Cells % 0.0 0.0 Neutrophils # 2.6 2.9 Lymphocytes # 1.6 1.3 Monocytes # 0.5 0.6 Eosinophils # 0.4 0.4 Basophils # 0.1 0.0 Nucleated Red Blood Cells # 0.0 0.0 Sodium Level 140 142 Potassium Level 4.7 4.0 Chloride Level 107 107 Carbon Dioxide Level 28 28 Anion Gap 10 11 Blood Urea Nitrogen 23 H 25 H Creatinine 0.97 0.94 Glucose Level 76 89 Hemoglobin A1c 5.9 Calcium Level 9.6 9.4 Total Bilirubin 0.3 Direct Bilirubin 0.00 Indirect Bilirubin 0.3 Aspartate Amino Transf (AST/SGOT) 37 Alanine Aminotransferase (ALT/SGPT) 40 Alkaline Phosphatase 104 B-Type Natriuretic Peptide 4670 H Total Protein 7.4 Albumin 4.2 Globulin 3.20 Albumin/Globulin Ratio 1.31 Thyroid Stimulating Hormone (TSH) 1.700 Troponin I 0.014 Medications Medications Current Medications Ondansetron HCl (Zofran Inj) 4 mg Q6H PRN IV NAUSEA AND/OR VOMITING; Start 6/ 11/17 at 00:00 Acetaminophen (Tylenol Liquid) 650 mg Q6H PRN PO PAIN LEVEL 1-3 OR FEVER; Start 10/14/16 at 00:00 Morphine Sulfate (morphine) 2 mg Q4H PRN IV PAIN LEVEL 7-10; Start 10/14/16 at 00:00 Lorazepam (Ativan) 1 mg Q2H PRN IV ANXIETY; Start 10/14/16 at 00:00 Docusate Sodium (Colace) 100 mg BID PO Last administered on 10/15/16 08:36; Admin Dose 100 MG; Start 10/14/16 at 09:00 Atorvastatin Calcium (Lipitor) 20 mg DAILY PO Last administered on 10/15/16 08 :36; Admin Dose 20 MG; Start 10/14/16 at 20:00 Benazepril HCl (Lotensin) 20 mg DAILY PO Last administered on 10/15/16 08:36; Admin Dose 20 MG; Start 10/14/16 at 09:00 Carvedilol (Coreg) 3.125 mg BID PO ; Start 10/14/16 at 09:00; Status Future Hold Furosemide (Lasix) 40 mg BID@06,18 PO Last administered on 10/15/16 06:37; Admin Dose 40 MG; Start 10/14/16 at 06:00 Spironolactone 25 mg 25 mg DAILY PO Last administered on 10/15/16 08:36; Admin Dose 25 MG; Start 10/14/16 at 09:00 Sodium Chloride (NS) 1,000 ml @ 60 mls/hr [id number] IV Last administered on 10/14 14:32; Admin Dose 60 MLS/HR; Start 10/14/16 at 14:00 Aspirin (Halfprin) 81 mg DAILY PO Last administered on 10/15/16 13:19; Admin Dose 81 MG; Start 10/15/16 at 12:30 BREONNA ROLLE Oct 15, 2016 14:20
--- NOTE | 2016-10-15 14:22 | CONS ---
Date/Time of Note Date/Time of Note DATE: 10/15/16 TIME: 14:21 Assessment/Plan Assessment/Plan Chief Complaint/Hosp Course IMPRESSION: 1. Cardiac arrhythmia with bradycardia to the high 30s with sinus bradycardia and possible episodes of junctional rhythm/rate. 2. Cardiomyopathy with severely depressed left ventricular ejection fraction by prior 2D echo 2014. 3. Cerebrovascular accident, acute, status post TPA. 4. Hypertension, labile. 5. Dyslipidemia. 6. Medical noncompliance. 7. Substance abuse with methamphetamines. 8.Positive troponin-now trended negtaive. [place] type 2 infarct Recc: -Tele -serial ecg's -Continue asa -add plavix to maximize medical therapy -Continue statin -Holding BB given prior rosita -Continue acei Problems: Consultation Date/Type/Reason Admit Date/Time Oct 13, 2016 at 23:42 Initial Consult Date 10/15/16 Type of Consultation: cardiology Referring Provider: MARISSA LOPEZ Exam/Review of Systems Vital Signs Vitals Vital Signs Date Time Temp Pulse Resp B/P Pulse Ox O2 Delivery O2 Flow Rate FiO2 10/15/16 12:00 76 10/15/16 10:00 24 113/83 94 Room Air 10/15/16 08:00 98.1 10/14/16 16:59 21 10/14/16 09:00 2.0 Intake and Output 10/14/16 10/14/16 10/15/16 15:00 23:00 07:00 Intake Total 1060 ml 300 ml 240 ml Output Total 300 ml 625 ml 650 ml Balance 760 ml -325 ml -410 ml Results Result Diagram: 10/15/16 0545 10/15/16 0545 Results 24 hrs Laboratory Tests Test 10/14/16 14:50 10/14/16 16:45 10/14/16 18:47 10/15/16 05:45 Urine Color LT. YELLOW Urine Clarity CLEAR Urine pH 5.5 Urine Specific [place] 1.025 Urine Ketones NEGATIVE Urine Nitrite NEGATIVE Urine Bilirubin NEGATIVE Urine Urobilinogen 0.2 E.U./dL Urine Leukocyte Esterase NEGATIVE Urine Hemoglobin NEGATIVE Urine Glucose NEGATIVE Urine Total Protein NEGATIVE Urine Opiates Screen Negative Urine Barbiturates Negative Urine Amphetamines Screen POSITIVE Urine Benzodiazepines Screen Negative Urine Cocaine Screen Negative Urine Cannabinoids Positive White Blood Count 5.1 # 5.2 Red Blood Count 4.67 L 4.92 Hemoglobin 14.2 14.6 Hematocrit 44.3 45.7 Mean Corpuscular Volume 94.9 92.9 Mean Corpuscular Hemoglobin 30.4 29.7 Mean Corpuscular Hemoglobin Concent 32.1 31.9 L Red Cell Distribution Width 13.8 13.6 Platelet Count 144 154 Mean Platelet Volume 10.7 H 10.6 H Neutrophils % 50.9 55.5 Lymphocytes % 30.4 25.2 Monocytes % 10.5 10.6 Eosinophils % 7.0 7.5 H Basophils % 1.0 0.8 Nucleated Red Blood Cells % 0.0 0.0 Neutrophils # 2.6 2.9 Lymphocytes # 1.6 1.3 Monocytes # 0.5 0.6 Eosinophils # 0.4 0.4 Basophils # 0.1 0.0 Nucleated Red Blood Cells # 0.0 0.0 Sodium Level 140 142 Potassium Level 4.7 4.0 Chloride Level 107 107 Carbon Dioxide Level 28 28 Anion Gap 10 11 Blood Urea Nitrogen 23 H 25 H Creatinine 0.97 0.94 Glucose Level 76 89 Hemoglobin A1c 5.9 Calcium Level 9.6 9.4 Total Bilirubin 0.3 Direct Bilirubin 0.00 Indirect Bilirubin 0.3 Aspartate Amino Transf (AST/SGOT) 37 Alanine Aminotransferase (ALT/SGPT) 40 Alkaline Phosphatase 104 B-Type Natriuretic Peptide 4670 H Total Protein 7.4 Albumin 4.2 Globulin 3.20 Albumin/Globulin Ratio 1.31 Thyroid Stimulating Hormone (TSH) 1.700 Troponin I 0.014 Medications Medications Current Medications Ondansetron HCl (Zofran Inj) 4 mg Q6H PRN IV NAUSEA AND/OR VOMITING; Start 03/22 at 00:00 Acetaminophen (Tylenol Liquid) 650 mg Q6H PRN PO PAIN LEVEL 1-3 OR FEVER; Start 10/14/16 at 00:00 Morphine Sulfate (morphine) 2 mg Q4H PRN IV PAIN LEVEL 7-10; Start 10/14/16 at 00:00 Lorazepam (Ativan) 1 mg Q2H PRN IV ANXIETY; Start 10/14/16 at 00:00 Docusate Sodium (Colace) 100 mg BID PO Last administered on 10/15/16 08:36; Admin Dose 100 MG; Start 10/14/16 at 09:00 Atorvastatin Calcium (Lipitor) 20 mg DAILY PO Last administered on 10/15/16 08 :36; Admin Dose 20 MG; Start 10/14/16 at 20:00 Benazepril HCl (Lotensin) 20 mg DAILY PO Last administered on 10/15/16 08:36; Admin Dose 20 MG; Start 10/14/16 at 09:00 Carvedilol (Coreg) 3.125 mg BID PO ; Start 10/14/16 at 09:00; Status Future Hold Furosemide (Lasix) 40 mg BID@06,18 PO Last administered on 10/15/16 06:37; Admin Dose 40 MG; Start 10/14/16 at 06:00 Spironolactone 25 mg 25 mg DAILY PO Last administered on 10/15/16 08:36; Admin Dose 25 MG; Start 10/14/16 at 09:00 Sodium Chloride (NS) 1,000 ml @ 60 mls/hr [id number] IV Last administered on 10/14 14:32; Admin Dose 60 MLS/HR; Start 10/14/16 at 14:00 Aspirin (Halfprin) 81 mg DAILY PO Last administered on 10/15/16 13:19; Admin Dose 81 MG; Start 10/15/16 at 12:30 BREONNA ROLLE Oct 15, 2016 14:22
--- NOTE | 2016-10-15 14:40 | PN ---
DATE: 10/15/2016 INFECTIOUS DISEASE PROGRESS NOTE SUBJECTIVE: No acute changes. No fevers. The patient is alert, looks comfortable. No nausea, vom iting, diarrhea, no cough, no hemoptysis. VITAL SIGNS: Temperature 98.1, pulse 79, respirations 24, blood pressure 139/66, saturation 94 on r oom air. LABORATORY DATA: WBC 5.2, H and H 14.6 and 45.7, platelets 154, neutrophils 55.5, BUN 25, creatinin e 0.94. DIAGNOSTICS: Chest x-ray on admission revealed no acute cardiopulmonary findings. PHYSICAL EXAMINATION: GENERAL: Chronically ill-appearing, well-developed, middle-aged man who is awake, but with sluggish responses. HEENT: Head atraumatic, normocephalic. Sclerae anicteric. Buccal mucosa dry. NECK: Supple. CHEST: Rise symmetrical. Breath sounds diminished to bases. HEART: S1, S2. ABDOMEN: Soft, bowel sounds present. EXTREMITIES: Without cyanosis. ASSESSMENT: 1. Acute cerebrovascular accident per MRI of the brain, patient is being seen by neurology. 2. History of left lung cancer status post lobectomy. 3. Possible chronic obstructive pulmonary disease. 4. Questionable history of latent tuberculosis, no radiographic evidence of any active issues. PLAN: The patient remains stable, he is being seen by Dr. Torres in pulmonary consultation who dorota red his x-ray with x-ray done in September 2014 and documented that there is no suspicion of any active pu lmonary TB or pneumonia at this time, and therefore, we are going to discontinue isolation. Dictated By: MEHNAZ CASANOVA STAKING ENGINEER for BARTOLO VILLALOBOS/KIKE Conf#: [id number] DID#: [id number]
--- NOTE | 2016-10-15 16:59 | RADRPT ---
Echocardiogram Report Patient Name: HOANG SPAIN Gender: Male Date: 1955 Study Date: 15-Oct-2016 Channel Worker: Sánchez Waller RDCS Location: [facility], [facility] Ref. Physician: DANIELA LINARES Quality: Good Procedures: Transthoracic echocardiogram with complete 2D, M-Mode, and doppler examination. Indications: acute Cerebrovascular Accident s/p tps. 2D/M Mode Doppler Measurement Value Normal Ranges Measurement Value Normal Ranges LVIDd 2D 6.3 3.5 - 5.6 cm AV Peak Ruddy 1.5 m/sec LVIDs 2D 5.6 2.1 - 4.1 cm AV Peak PG 9.0 mmHg FS 2D 11.1 % AI Peak PG 66.0 mmHg LVPWd 2D 1.2 0.6 - 1.1 cm AI Peak Ruddy 4.1 m/sec IVSd 2D 1.1 0.6 - 1.1 cm AI PHT 930.0 msec IVS/LVPW 2D 0.9 LVOT Peak Ruddy 1.0 m/sec AoR Diam 2D 3.4 2.0 - 3.7 cm LVOT Peak PG 4.0 mmHg LA/Ao 2D 1 0 - 1 MV E Peak Ruddy 0.4 m/sec EDV 2D 252.0 cm3 MV A Peak Ruddy 0.5 m/sec ESV 2D 178.0 cm3 MV E/A 0.8 LA Dimen 2D 4.1 2.3 - 4.0 cm MV Decel Time 183 msec MV E/A 0.8 TR Peak Ruddy 3.6 m/sec TR Peak PG 53.0 mmHg RVSP 61.0 mmHg Findings Left Ventricle: Mild concentric left ventricular hypertrophy. Mild enlargement of left ventricle cavity. Severe left ventricular systolic dysfunction. Ejection fraction is visually estimated at 2025 %. Tissue Doppler/Mitral Doppler indices are consistent with impaired relaxation (Stage I diastolic dysfunction). Multiple segmental wall motion abnormalities. Right Ventricle: Mild right ventricular hypokinesis. Left Atrium: There is mild enlargement of left atrium. Right Atrium: The right atrium is normal in size. Mitral Valve: Mitral valve leaflets appear mildly thickened. Mild mitral annular calcification. Mild to moderate mitral valve regurgitation. Aortic Valve: No hemodynamically significant aortic stenosis by doppler. Aortic cusps appear mildly calcified. Mild to moderate aortic valve regurgitation. Tricuspid Valve: Estimated peak PA systolic pressure 61 mmHg. Tricuspid valve appears mildly thickened. There is mild tricuspid regurgitation. Pulmonic Valve: Normal pulmonic valve appearance. There is trace pulmonic regurgitation. Pericardium: Normal pericardium with no significant pericardial effusion. Aorta: Normal aortic root. IVC: Normal size and no respiratory collapse consistent with elevated right atrial pressure. Conclusions 1.Mild concentric left ventricular hypertrophy. Mild enlargement of left ventricle cavity. Severe left ventricular systolic dysfunction. Ejection fraction is visually estimated at 20-25 %. Tissue Doppler/Mitral Doppler indices are consistent with impaired relaxation (Stage I diastolic dysfunction). Multiple segmental wall motion abnormalities. 2.Mild right ventricular hypokinesis. 3.There is mild enlargement of left atrium. 4.Mitral valve leaflets appear mildly thickened. Mild mitral annular calcification. Mild to moderate mitral valve regurgitation. 5.No hemodynamically significant aortic stenosis by doppler. Aortic cusps appear mildly calcified. Mild to moderate aortic valve regurgitation. 6.Estimated peak PA systolic pressure 61 mmHg. Tricuspid valve appears mildly thickened. There is mild tricuspid regurgitation. 7.Normal pulmonic valve appearance. There is trace pulmonic regurgitation. Electronically Signed By: Cheo Collazo 15-Oct-2016 16:59:20 -0700 Patient Name: HOANG SPAIN Study Date: 15-Oct-2016 [id number]
[2016-10-16] VITALS (13 sets, daily range): BP systolic 119–149; BP diastolic 44–78; PULSE 60–88; RESP 19–20
[2016-10-16] MEDS: FUROSEMIDE 40 MG TAB PO SCH ×2 (06:09→17:56)
[2016-10-16] MEDS: DOCUSATE SODIUM 100 MG CAP PO SCH ×3 (09:00→20:40)
--- NOTE | 2016-10-16 09:37 | CONS ---
Date/Time of Note Date/Time of Note DATE: 10/16/16 TIME: 09:32 Assessment/Plan Assessment/Plan Additional Assessment/Plan 1. Cardiac arrhythmia with bradycardia to the high 30s with sinus bradycardia and possible episodes of junctional rhythm/rate - no pauses, sinus rosita now. Will monitor for now. 2. Cardiomyopathy with severely depressed left ventricular ejection fraction by prior 2D echo 2014. Outpt eval for ICD advised, given h/o medical non- compliance, might not be a good candidate. 3. Cerebrovascular accident, acute, status post TPA - neuro to follow. 4. Hypertension, labile- better now. 5. Dyslipidemia. 6. Medical noncompliance. 7. Substance abuse with methamphetamines. 8.Positive troponin-now trended negtaive. Kareem type 2 infarct Consultation Date/Type/Reason Admit Date/Time Oct 13, 2016 at 23:42 Initial Consult Date 10/15/16 Type of Consultation: cardiology Referring Provider: MARISSA LOPEZ 24 HR Interval Summary Free Text/Dictation NO acute events - rosita on tele, but BP stable ROS: No fever, no chills, no nausea, no vomiting, no diarrhea/constipation No recent weight changes No chest pain, no PND, no orthopnea No dizziness, blurred vision No thirst, no heat or cold intolerance Exam/Review of Systems Vital Signs Vitals Vital Signs Date Time Temp Pulse Resp B/P Pulse Ox O2 Delivery O2 Flow Rate FiO2 10/16/16 08:00 68 10/16/16 07:38 98.3 20 135/65 98 10/15/16 15:00 Room Air 10/14/16 16:59 21 10/14/16 09:00 2.0 Intake and Output 10/15/16 10/15/16 10/16/16 15:00 23:00 07:00 Intake Total 250 ml 700 ml 400 ml Output Total 500 ml 500 ml 600 ml Balance -250 ml 200 ml -200 ml Exam General: WN/WD/NAD, AOx 3 HEENT: Unicetric/atraumatic/EOMI (follow commands) NECK: JVD not elevated, no thyromegaly Lymph: no lymphadenopathy HEART: regular with no S3, II/ systolic murmur at apex, PMI L LUNGS: Coarse sounds ABD: soft, NT, ND, +BS : Intact Neuro: non focal SKIN: chronic changes EXT: trace edema Results Result Diagram: 6/12/17 0545 10/15/1645 Medications Medications Current Medications Ondansetron HCl (Zofran Inj) 4 mg Q6H PRN IV NAUSEA AND/OR VOMITING; Start 03/22 at 00:00 Acetaminophen (Tylenol Liquid) 650 mg Q6H PRN PO PAIN LEVEL 1-3 OR FEVER; Start 10/14/16 at 00:00 Morphine Sulfate (morphine) 2 mg Q4H PRN IV PAIN LEVEL 7-10; Start 10/14/16 at 00:00 Lorazepam (Ativan) 1 mg Q2H PRN IV ANXIETY; Start 10/14/16 at 00:00 Docusate Sodium (Colace) 100 mg BID PO Last administered on 10/15/16 08:36; Admin Dose 100 MG; Start 10/14/16 at 09:00 Atorvastatin Calcium (Lipitor) 20 mg DAILY PO Last administered on 10/15/16 08 :36; Admin Dose 20 MG; Start 10/14/16 at 20:00 Benazepril HCl (Lotensin) 20 mg DAILY PO Last administered on 10/15/16 08:36; Admin Dose 20 MG; Start 10/14/16 at 09:00 Carvedilol (Coreg) 3.125 mg BID PO ; Start 10/14/16 at 09:00; Status Future Hold Furosemide (Lasix) 40 mg BID@06,18 PO Last administered on 10/16/16 06:09; Admin Dose 40 MG; Start 10/14/16 at 06:00 Spironolactone (Aldactone) 25 mg DAILY PO Last administered on 10/15/16 08:36 ; Admin Dose 25 MG; Start 10/14/16 at 09:00 Aspirin (Halfprin) 81 mg DAILY PO Last administered on 10/15/16 13:19; Admin Dose 81 MG; Start 10/15/16 at 12:30 Clopidogrel Bisulfate (plaVIX) 75 mg DAILY PO ; Start 10/16/16 at 09:00 ANTHONY BOUDREAUX MD Oct 16, 2016 09:37
[2016-10-16] MEDS: BENAZEPRIL 20 MG TAB PO SCH (09:42)
[2016-10-16] MEDS: CLOPIDOGREL 75 MG TAB PO SCH (09:42)
[2016-10-16] MEDS: SPIRONOLACTONE 25 MG TAB PO SCH (09:42)
[2016-10-16] MEDS: ATORVASTATIN 20 MG TAB PO SCH (09:42)
[2016-10-16] MEDS: ASPIRIN (EC) 81 MG TAB PO SCH (09:42)
[2016-10-16 10:28] LABS: ADD SCAN DIFF NO
[2016-10-16 10:40] LABS: BASOPHIL # 0.1 10^3/ul (0.0-0.1); BASOPHILS % 0.8 % (0.0-2.0); EOSINOPHILS # 0.6 10^3/ul (0.0-0.5); EOSINOPHILS % 8.5 % (0.0-7.0); HEMATOCRIT 49.3 % (42.0-52.0); LYMPHOCYTES # 1.8 10^3/ul (0.8-2.9); LYMPHOCYTES % 28.3 % (15.0-51.0); MEAN CORPUSCULAR HEMOGLOBIN 30.1 pg (29.0-33.0); MEAN CORPUSCULAR HGB CONC 32.5 g/dl (32.0-37.0); MEAN CORPUSCULAR VOLUME 92.8 fl (82.0-101.0); MEAN PLATELET VOLUME 10.9 fl (7.4-10.4); MONOCYTE # 0.7 10^3/ul (0.3-0.9); MONOCYTES % 11.4 % (0.0-11.0); NEUTROPHIL # 3.3 10^3/ul (1.6-7.5); NEUTROPHILS % 50.7 % (39.0-77.0); PLATELET COUNT 180 10^3/UL (140-415); RED BLOOD COUNT 5.31 10^6/ul (4.70-6.10); RED CELL DISTRIBUTION WIDTH 13.6 % (11.5-14.5); WHITE BLOOD COUNT 6.5 10^3/ul (4.8-10.8)
[2016-10-16 11:15] LABS: CREATININE 0.95 mg/dl (0.61-1.24); POTASSIUM 4.3 mmol/L (3.5-5.1)
[2016-10-16 11:41] LABS: CHOL/HDL RATIO 5.1 RATIO
--- NOTE | 2016-10-16 11:59 | CONS ---
Date/Time of Note Date/Time of Note DATE: 10/16/16 TIME: 11:56 Consult Date/Type/Reason Admit Date/Time Oct 13, 2016 at 23:42 Initial Consult Date 10/14/16 Type of Consultation: Neurology Reason for Consultation CVA Ordering Provider: MARISSA LOPEZ Subjective no overnight issues no deficits requesting to leave Objective Vital Signs Date Time Temp Pulse Resp B/P Pulse Ox O2 Delivery O2 Flow Rate FiO2 10/16/16 11:09 98.6 70 20 134/58 98 10/15/16 15:00 Room Air 10/14/16 16:59 21 10/14/16 09:00 2.0 Intake and Output 10/15/16 10/15/16 10/16/16 14:59 22:59 06:59 Intake Total 250 ml 700 ml 400 ml Output Total 500 ml 500 ml 600 ml Balance -250 ml 200 ml -200 ml Exam awake alert oriented x3 disheveled appearance follows commands no aphasia CN: SIMI, VFF, EOMI no nystagmus V1-3 intact no facial asymmetry palate upgoing uvula midline scm/trap intact tongue midline Motor: no drift in arms or legs Sensory intact throughout Coord. stable Results/Medications Result Diagram: 10/16/16 0950 10/16/16 0950 Results 24 hrs Laboratory Tests Test 10/16/16 09:50 White Blood Count 6.5 # Red Blood Count 5.31 Hemoglobin 16.0 Hematocrit 49.3 Mean Corpuscular Volume 92.8 Mean Corpuscular Hemoglobin 30.1 Mean Corpuscular Hemoglobin Concent 32.5 Red Cell Distribution Width 13.6 Platelet Count 180 Mean Platelet Volume 10.9 H Neutrophils % 50.7 Lymphocytes % 28.3 Monocytes % 11.4 H Eosinophils % 8.5 H Basophils % 0.8 Nucleated Red Blood Cells % 0.0 Neutrophils # 3.3 Lymphocytes # 1.8 Monocytes # 0.7 Eosinophils # 0.6 H Basophils # 0.1 Nucleated Red Blood Cells # 0.0 Sodium Level 143 Potassium Level 4.3 Chloride Level 104 Carbon Dioxide Level 29 Anion Gap 14 Blood Urea Nitrogen 19 Creatinine 0.95 Glucose Level 88 Calcium Level 10.0 Triglycerides Level 101 Cholesterol Level 216 H LDL Cholesterol, Calculated 154 HDL Cholesterol 42 Cholesterol/HDL Ratio 5.1 Medications Current Medications Ondansetron HCl (Zofran Inj) 4 mg Q6H PRN IV NAUSEA AND/OR VOMITING; Start 03/22 at 00:00 Acetaminophen (Tylenol Liquid) 650 mg Q6H PRN PO PAIN LEVEL 1-3 OR FEVER; Start 10/14/16 at 00:00 Morphine Sulfate (morphine) 2 mg Q4H PRN IV PAIN LEVEL 7-10; Start 10/14/16 at 00:00 Lorazepam (Ativan) 1 mg Q2H PRN IV ANXIETY; Start 10/14/16 at 00:00 Docusate Sodium (Colace) 100 mg BID PO Last administered on 10/15/16 08:36; Admin Dose 100 MG; Start 10/14/16 at 09:00 Atorvastatin Calcium (Lipitor) 20 mg DAILY PO Last administered on 10/16/16 09 :42; Admin Dose 20 MG; Start 10/14/16 at 20:00 Benazepril HCl (Lotensin) 20 mg DAILY PO Last administered on 10/16/16 09:42; Admin Dose 20 MG; Start 10/14/16 at 09:00 Carvedilol (Coreg) 3.125 mg BID PO ; Start 10/14/16 at 09:00; Status Future Hold Furosemide (Lasix) 40 mg BID@06,18 PO Last administered on 10/16/16 06:09; Admin Dose 40 MG; Start 10/14/16 at 06:00 Spironolactone (Aldactone) 25 mg DAILY PO Last administered on 10/16/16 09:42 ; Admin Dose 25 MG; Start 10/14/16 at 09:00 Aspirin (Halfprin) 81 mg DAILY PO Last administered on 10/16/16 09:42; Admin Dose 81 MG; Start 10/15/16 at 12:30 Clopidogrel Bisulfate (plaVIX) 75 mg DAILY PO Last administered on 10/16/16 09 :42; Admin Dose 75 MG; Start 10/16/16 at 09:00 Assessment/Plan Chief Complaint/Hosp Course 61 yo male active smoker history of lung CA, severe cardiomyopathy, substance abuse admitted with left sided weakness s/p IV tPA with improvement of symptoms. MRI shows acute infarcts Right MCA territory and tiny left insular infarct seen MRA Head suggestive of irregular M2 branch Left MCA MRA Neck no stenosis ECHO: mild LVH , EF 20-25% segmental wall akinesis Recommendations: -would recommend initiation of anticoagulation for suspected cardioembolic CVA may initiate Coumadin if cleared by cardiology -maintain normotension, euglycemia -advised patient the importance of compliance with medications smoking cessation/abstinence from polysubstance abuse counseled patient Problems: RHIANNON QUINTANILLA MD Oct 16, 2016 11:59
--- NOTE | 2016-10-16 12:08 | PN ---
Date/Time of Note Date/Time of Note DATE: 10/16/16 TIME: 12:02 Assessment/Plan VTE Prophylaxis VTE Prophylaxis Intervention: SCD's Lines/Catheters IV [facility]from [facility] Saline Lock Urinary Cath still in place: No Assessment/Plan Chief Complaint/Hosp Course Assessment and plan 1. Acute on chronic CVA status post TPA. Neurologist consulted. Continue aspirin and statin As per neurology recommended to start Coumadin if cleared by cardiology PT OT eval and treat 2. history of recurrent TIA. As above 3. History of severe cardiopathy with EF of 20-25%. Will get wheelchair rental clerk to follow. Follow-up on echocardiogram. Continue on cardiovascular medications. (Beta-marlon on hold due to bradycardia) 4. Bradycardia. Pharmacy Scheduler follow. Continue telemetry monitoring. 5. History of COPD. Will provide bronchodilators as needed. Continue on O2. 6. History of latent TB. Infectious disease and hide dyer has been consulted, no evidence of acute TB on chest x-ray. Patient may be off isolation as per infectious disease 7. History of drug abuse. Will get nursing home social worker to follow. Cessation was advised. 8. Suspect history of medical noncompliance. Patient educated concerning issue and consequences of medical noncompliance. 9. Neck mass/lipoma. Chronic, patient has had a full workup as outpatient Disposition and plan: Follow-up with rehab services. health center manager consult for placement Problems: Subjective 24 Hr Interval Summary Free Text/Dictation Patient denies of any headache or dizziness Denies of any chest pain Denies of any weakness Exam/Review of Systems Vital Signs Vitals Vital Signs Date Time Temp Pulse Resp B/P Pulse Ox O2 Delivery O2 Flow Rate FiO2 10/16/16 11:09 98.6 70 20 134/58 98 10/15/16 15:00 Room Air 10/14/16 16:59 21 10/14/16 09:00 2.0 Intake and Output 10/15/16 10/15/16 10/16/16 15:00 23:00 07:00 Intake Total 250 ml 700 ml 400 ml Output Total 500 ml 500 ml 600 ml Balance -250 ml 200 ml -200 ml Exam General: The patient is well-developed, Not in acute distress. HEENT: Atraumatic, normocephalic. The pupils are equal and round . Neck: Supple with full range of motion. Chest: Normal expansion of the thorax during inspiration Lungs: Clear to auscultation bilaterally Heart: Normal S1-S2, Regular rhythm and rate. Abdomen: Soft , nontender, nondistended , bowel sounds are present. Extremities: Normal to inspection, no edema no cyanosis Neurologic: Normal mental status,The patient is awake, alert and oriented . Results Result Diagram: 10/16/16 0950 10/16/16 0950 Results 24 hrs Laboratory Tests Test 10/16/16 09:50 White Blood Count 6.5 # Red Blood Count 5.31 Hemoglobin 16.0 Hematocrit 49.3 Mean Corpuscular Volume 92.8 Mean Corpuscular Hemoglobin 30.1 Mean Corpuscular Hemoglobin Concent 32.5 Red Cell Distribution Width 13.6 Platelet Count 180 Mean Platelet Volume 10.9 H Neutrophils % 50.7 Lymphocytes % 28.3 Monocytes % 11.4 H Eosinophils % 8.5 H Basophils % 0.8 Nucleated Red Blood Cells % 0.0 Neutrophils # 3.3 Lymphocytes # 1.8 Monocytes # 0.7 Eosinophils # 0.6 H Basophils # 0.1 Nucleated Red Blood Cells # 0.0 Sodium Level 143 Potassium Level 4.3 Chloride Level 104 Carbon Dioxide Level 29 Anion Gap 14 Blood Urea Nitrogen 19 Creatinine 0.95 Glucose Level 88 Calcium Level 10.0 Triglycerides Level 101 Cholesterol Level 216 H LDL Cholesterol, Calculated 154 HDL Cholesterol 42 Cholesterol/HDL Ratio 5.1 Medications Medications Current Medications Ondansetron HCl (Zofran Inj) 4 mg Q6H PRN IV NAUSEA AND/OR VOMITING; Start 03/22 at 00:00 Acetaminophen (Tylenol Liquid) 650 mg Q6H PRN PO PAIN LEVEL 1-3 OR FEVER; Start 10/14/16 at 00:00 Morphine Sulfate (morphine) 2 mg Q4H PRN IV PAIN LEVEL 7-10; Start 10/14/16 at 00:00 Lorazepam (Ativan) 1 mg Q2H PRN IV ANXIETY; Start 10/14/16 at 00:00 Docusate Sodium (Colace) 100 mg BID PO Last administered on 10/15/16 08:36; Admin Dose 100 MG; Start 10/14/16 at 09:00 Atorvastatin Calcium (Lipitor) 20 mg DAILY PO Last administered on 10/16/16 09 :42; Admin Dose 20 MG; Start 10/14/16 at 20:00 Benazepril HCl (Lotensin) 20 mg DAILY PO Last administered on 10/16/16 09:42; Admin Dose 20 MG; Start 10/14/16 at 09:00 Carvedilol (Coreg) 3.125 mg BID PO ; Start 10/14/16 at 09:00; Status Future Hold Furosemide (Lasix) 40 mg BID@18 PO Last administered on 10/16/16 06:09; Admin Dose 40 MG; Start 10/14/16 at 06:00 Spironolactone (Aldactone) 25 mg DAILY PO Last administered on 10/16/16 09:42 ; Admin Dose 25 MG; Start 10/14/16 at 09:00 Aspirin (Halfprin) 81 mg DAILY PO Last administered on 10/16/16 09:42; Admin Dose 81 MG; Start 10/15/16 at 12:30 Clopidogrel Bisulfate (plaVIX) 75 mg DAILY PO Last administered on 10/16/16 09 :42; Admin Dose 75 MG; Start 10/16/16 at 09:00 MARCELO JURADO MD Oct 16, 2016 12:08
--- NOTE | 2016-10-16 12:39 | CONS ---
Date/Time of Note Date/Time of Note DATE: 10/16/16 TIME: 12:37 Consultation Date/Type/Reason Admit Date/Time Oct 13, 2016 at 23:42 Initial Consult Date 10/15/16 Type of Consultation: Pulmonary Referring Provider: MARISSA LOPEZ 24 HR Interval Summary Free Text/Dictation Patient condition stable. Has been transferred out of ICU to telemetry unit. Denies any shortness of breath, chest pain, wheezing coughing. Denies any neurological complaints. General exam; middle-aged male, awake alert currently in no distress. Exam/Review of Systems Vital Signs Vitals Vital Signs Date Time Temp Pulse Resp B/P Pulse Ox O2 Delivery O2 Flow Rate FiO2 10/16/16 12:00 77 10/16/16 11:09 98.6 20 134/58 98 10/15/16 15:00 Room Air 10/14/16 16:59 21 10/14/16 09:00 2.0 Intake and Output 10/15/16 10/15/16 10/16/16 15:00 23:00 07:00 Intake Total 250 ml 700 ml 400 ml Output Total 500 ml 500 ml 600 ml Balance -250 ml 200 ml -200 ml Exam HEENT examination; supple neck, no JVD. No lymphadenopathy. Midline trachea. No thyromegaly. Patient has a multiple missing teeth. Pupils are midsize and reactive to light. Chest examination; right lung clear to auscultation, diminished breath sounds left lower lobe with a well-healed left thoracotomy scar. S1-S2 audible, no murmurs. Regular rhythm. Abdomen exam; soft, no distention. No organomegaly. Bowel sounds audible. Extremity examination; no peripheral edema. ALGOLOGY TEACHER examination; no focal deficit. Results Result Diagram: 10/16/16 0950 10/16/16 0950 Results 24 hrs Laboratory Tests Test 10/16/16 09:50 White Blood Count 6.5 # Red Blood Count 5.31 Hemoglobin 16.0 Hematocrit 49.3 Mean Corpuscular Volume 92.8 Mean Corpuscular Hemoglobin 30.1 Mean Corpuscular Hemoglobin Concent 32.5 Red Cell Distribution Width 13.6 Platelet Count 180 Mean Platelet Volume 10.9 H Neutrophils % 50.7 Lymphocytes % 28.3 Monocytes % 11.4 H Eosinophils % 8.5 H Basophils % 0.8 Nucleated Red Blood Cells % 0.0 Neutrophils # 3.3 Lymphocytes # 1.8 Monocytes # 0.7 Eosinophils # 0.6 H Basophils # 0.1 Nucleated Red Blood Cells # 0.0 Sodium Level 143 Potassium Level 4.3 Chloride Level 104 Carbon Dioxide Level 29 Anion Gap 14 Blood Urea Nitrogen 19 Creatinine 0.95 Glucose Level 88 Calcium Level 10.0 Triglycerides Level 101 Cholesterol Level 216 H LDL Cholesterol, Calculated 154 HDL Cholesterol 42 Cholesterol/HDL Ratio 5.1 Medications Medications Current Medications Ondansetron HCl (Zofran Inj) 4 mg Q6H PRN IV NAUSEA AND/OR VOMITING; Start 03/22 at 00:00 Acetaminophen (Tylenol Liquid) 650 mg Q6H PRN PO PAIN LEVEL 1-3 OR FEVER; Start 10/14/16 at 00:00 Morphine Sulfate (morphine) 2 mg Q4H PRN IV PAIN LEVEL 7-10; Start 10/14/16 at 00:00 Lorazepam (Ativan) 1 mg Q2H PRN IV ANXIETY; Start 10/14/16 at 00:00 Docusate Sodium (Colace) 100 mg BID PO Last administered on 10/15/16 08:36; Admin Dose 100 MG; Start 10/14/16 at 09:00 Atorvastatin Calcium (Lipitor) 20 mg DAILY PO Last administered on 10/16/16 09 :42; Admin Dose 20 MG; Start 10/14/16 at 20:00 Benazepril HCl (Lotensin) 20 mg DAILY PO Last administered on 10/16/16 09:42; Admin Dose 20 MG; Start 10/14/16 at 09:00 Carvedilol (Coreg) 3.125 mg BID PO ; Start 10/14/16 at 09:00; Status Future Hold Furosemide (Lasix) 40 mg BID@06,18 PO Last administered on 10/16/16 06:09; Admin Dose 40 MG; Start 10/14/16 at 06:00 Spironolactone (Aldactone) 25 mg DAILY PO Last administered on 10/16/16 09:42 ; Admin Dose 25 MG; Start 10/14/16 at 09:00 Aspirin (Halfprin) 81 mg DAILY PO Last administered on 10/16/16 09:42; Admin Dose 81 MG; Start 10/15/16 at 12:30 Clopidogrel Bisulfate (plaVIX) 75 mg DAILY PO Last administered on 10/16/16 09 :42; Admin Dose 75 MG; Start 10/16/16 at 09:00 ANNAMARIA OSORIO Oct 16, 2016 12:39
[2016-10-16] MEDS ORDERED: LORAZEPAM 1 MG TAB PO PRN (17:00)
[2016-10-17] VITALS (10 sets, daily range): BP systolic 109–122; BP diastolic 50–71; PULSE 65–150; RESP 18–19
[2016-10-17] MEDS: FUROSEMIDE 40 MG TAB PO SCH (05:45)
[2016-10-17] MEDS: ATORVASTATIN 20 MG TAB PO SCH (08:36)
[2016-10-17] MEDS: CLOPIDOGREL 75 MG TAB PO SCH (08:36)
[2016-10-17] MEDS: SPIRONOLACTONE 25 MG TAB PO SCH (08:36)
[2016-10-17] MEDS: ASPIRIN (EC) 81 MG TAB PO SCH (08:37)
[2016-10-17] MEDS: BENAZEPRIL 20 MG TAB PO SCH (08:38)
[2016-10-17] MEDS: DOCUSATE SODIUM 100 MG CAP PO SCH ×2 (08:38→08:39)
[2016-10-17] MEDS ORDERED: DILTIAZEM 25 MG INJ IV ONE (13:30)
--- NOTE | 2016-10-17 14:02 | PN ---
DATE: 10/17/2016 SUBJECTIVE DATA: Denies any chest pain. OBJECTIVE DATA: VITAL SIGNS: Temperature 97.5, pulse rate 78, respiratory rate 18, blood pressure 112/59, oxygen saturation 97% on room air. GENERAL: This is a well-built, well-nourished patient lying in bed in no apparent distress. HEENT: Head normocephalic and atraumatic. Eyes: Anicteric sclerae. Conjunctivae clear. ENT: Nasal septum is midline. Oral mucosa is moist. NECK: Supple. No JVD noticed. RESPIRATORY: Bilaterally diminished breath sounds. No adventitious breath sounds heard. No use of accessory muscles of respiration. CARDIAC: Irregularly irregular rhythm. S1 and S2 heard. ABDOMEN: Soft, nontender and nondistended. Bowel sounds positive in all 4 quadrants. GENITOURINARY: Deferred. EXTREMITIES: No cyanosis, no clubbing, no edema. Peripheral pulses palpable. NEUROLOGIC: The patient is awake, alert and oriented. Cranial nerves are grossly intact. LABORATORY AND DIAGNOSTIC DATA: No lab or diagnostic data from today. ASSESSMENT AND PLAN 1. Acute infarct in the posterior right frontal lobe and right parietal lobe. He is status post TPA infusion. Continue aspirin and Plavix. Status post evaluation by speech therapy and physical therapy. 2. Cardiomyopathy with ejection fraction of 20% to 25%. Continue DAKOTA inhibitors. Beta blockers have been held because of bradycardia. 3. Chronic obstructive pulmonary disease. No evidence of any chronic obstructive pulmonary disease exacerbation. Continue inhaled bronchodilators as needed. 4. Paroxysmal atrial fibrillation with rapid ventricular response. The patient being followed by cardiology. Continue management as per cardiology. 5. Dyslipidemia. The patient will be continued on statins. 6. History of latent TB. Status post evaluation by pulmonary. 7. Neck mass/lipoma. This is chronic and the patient had a full workup as outpatient. No further workup indicated. 8. History of drug abuse. Urinalysis positive for cannabinoids and amphetamines. Cessation advised. animal husbandry worker followup. 9. Pulmonary hypertension. PA pressure of 61 mmHg.as per 2D echocardiogram. Continue supplemental oxygen. 10. Nicotine use. Cessation advised. 11. Fluid, electrolytes and nutrition. Low cholesterol diet. 12. Deep venous thrombosis prophylaxis. Bilateral sequential compression devices. 13. Gastrointestinal prophylaxis. Histamine 2 receptor blockers. PLAN: 1. Continue telemetry monitoring. 2. Discharge plan: [facility] facility versus home once cleared by consultants. The case was discussed with Dr. Leiva. JOVANA LEIVA MD, AM/KIKE Conf#: [id number] DID#: [id number] MTDD
--- NOTE | 2016-10-17 14:28 | CONS ---
Date/Time of Note Date/Time of Note DATE: 10/17/16 TIME: 14:25 Assessment/Plan Assessment/Plan Chief Complaint/Hosp Course IMPRESSION: 1. Cardiac arrhythmia with bradycardia to the high 30s with sinus bradycardia and possible episodes of junctional rhythm/rate.- NO recurrence since initial holding of BB but now having AF with FVR 2. Cardiomyopathy with severely depressed left ventricular ejection fraction by prior 2D echo 2014. 3. Cerebrovascular accident, acute, status post TPA. 4. Hypertension, labile. 5. Dyslipidemia. 6. Medical noncompliance. 7. Substance abuse with methamphetamines. 8.Positive troponin-now trended negtaive. [place]ank[place] type 2 infarct Recc: -Tele -serial ecg's -Continue asa -Continue statin -Continue acei -Resume low dose BB and follow for recurrent rosita -? ability to resume systemic anticoag for AF Problems: Consultation Date/Type/Reason Admit Date/Time Oct 13, 2016 at 23:42 Initial Consult Date 10/15/16 Type of Consultation: cardiology Reason for Consultation AF/CHF/cardiomyopathy Referring Provider: MARISSA LOPEZ Exam/Review of Systems Vital Signs Vitals Vital Signs Date Time Temp Pulse Resp B/P Pulse Ox O2 Delivery O2 Flow Rate FiO2 10/17/16 13:20 88 18 109/57 98 Room Air 10/17/16 11:38 97.5 10/14/16 16:59 21 10/14/16 09:00 2.0 Intake and Output 10/16/16 10/16/16 10/17/16 15:00 23:00 07:00 Intake Total 800 ml 400 ml Balance 800 ml 400 ml Exam Review of Systems: CONSTITUTIONAL: No fevers, chills. PULMONARY: No sob CARDIOVASCULAR: No chest pain/palpitations GASTROINTESTINAL: No nausea/vomiting. GENITOURINARY: No hematuria/dysuria. MUSCULOSKELETAL: No myagias/arthalgias. PSYCHIATRIC: The patient denies depression. NEUROLOGIC: L sided weakness Constitutional: alert Psych: no complaints Head: normocephalic ENMT: mucosa pink and moist Neck: jvd (9 cm water), supple Respiratory: diminished breath sounds (at bases/B) Cardiovascular: regular rate and rhythm Gastrointestinal: non-tender, soft Musculoskeletal: muscle tone (normal) Extremities: edema (none) Neurological: focal weakness (L sided) Results Result Diagram: 10/16/16 0950 10/16/16 0950 Medications Medications Current Medications Ondansetron HCl (Zofran Inj) 4 mg Q6H PRN IV NAUSEA AND/OR VOMITING; Start 03/22 at 00:00 Acetaminophen (Tylenol Liquid) 650 mg Q6H PRN PO PAIN LEVEL 1-3 OR FEVER; Start 10/14/16 at 00:00 Morphine Sulfate (morphine) 2 mg Q4H PRN IV PAIN LEVEL 7-10; Start 10/14/16 at 00:00 Docusate Sodium (Colace) 100 mg BID PO Last administered on 10/15/16 08:36; Admin Dose 100 MG; Start 10/14/16 at 09:00 Atorvastatin Calcium (Lipitor) 20 mg DAILY PO Last administered on 10/17/16 08 :36; Admin Dose 20 MG; Start 10/14/16 at 20:00 Benazepril HCl (Lotensin) 20 mg DAILY PO Last administered on 10/17/16 08:38; Admin Dose 20 MG; Start 10/14/16 at 09:00 Carvedilol (Coreg) 3.125 mg BID PO ; Start 10/14/16 at 09:00; Status Future Hold Furosemide (Lasix) 40 mg BID@06,18 PO Last administered on 10/17/16 05:45; Admin Dose 40 MG; Start 10/14/16 at 06:00 Spironolactone (Aldactone) 25 mg DAILY PO Last administered on 10/17/16 08:36 ; Admin Dose 25 MG; Start 10/14/16 at 09:00 Aspirin (Halfprin) 81 mg DAILY PO Last administered on 10/17/16 08:37; Admin Dose 81 MG; Start 10/15/16 at 12:30 Clopidogrel Bisulfate (plaVIX) 75 mg DAILY PO Last administered on 10/17/16 08 :36; Admin Dose 75 MG; Start 10/16/16 at 09:00 Lorazepam (Ativan) 1 mg Q2H PRN PO ANXIETY; Start 10/16/16 at 17:00 Famotidine (Pepcid) 20 mg BID PO ; Start 10/17/16 at 21:00 BREONNA ROLLE 14, 2017 14:28
[2016-10-17] MEDS ORDERED: METOPROLOL 5 MG INJ IV PRN (14:30)
--- NOTE | 2016-10-17 17:04 | DS ---
DATE OF ADMISSION: 10/13/2016 DATE OF DISCHARGE: 10/17/2016 (The patient left against medical advice.) FINAL DIAGNOSES: 1. Acute infarct in the posterior right frontal lobe and right parietal lobes. Status post tissue plasminogen activator infusion. 2. Cardiomyopathy with ejection fraction of 20% to 25%. 3. Chronic obstructive pulmonary disease with no evidence of exacerbation. 4. Paroxysmal atrial fibrillation with rapid ventricular response. 5. Dyslipidemia. 6. History of latent tuberculosis. 7. Neck mass/lipoma. 8. Substance abuse. 9. Pulmonary hypertension. 10. Nicotine use. 11. Noncompliance. CONSULTATIONS: 1. Dr. Shimon Torres, pulmonary. 2. RHIANNON QUINTANILLA MD, neurology. 3. Dr. Cheo Collazo, cardiology. 4. CANDIDA CORTEZ MD, infectious diseases. HOSPITAL COURSE: This is a 61-year-old male with past medical history of COPD and metastatic lung cancer, status post lobectomy, CVA and latent TB who came to the emergency room with chief complaint of left-sided weakness, left facial drooping and difficulty in speaking. The patient was seen by a tele neurologist , Dr. Kang in the emergency room and the patient had a TPA infusion. Status post TPA infusion, the patient was transferred to the intensive care unit. The patient underwent a brain MRI that showed acute infarct in the posterior right frontal lobe and small area in the right parietal lobe. The patient was consequently started on dual antiplatelet therapy with aspirin and Plavix. The patient's fasting lipid panel was suboptimal with high total cholesterol and high LDL. The patient was maintained on statins for the same. The patient has history of cardiomyopathy with ejection fraction of 20% to 25%. The patient was maintained on DAKOTA inhibitors. Beta blockers were put on hold because the patient had episodes of bradycardia. However, the patient had an episode of paroxysmal atrial fibrillation with rapid ventricular response on that was treated with IV Cardizem. The patient has history of COPD. The patient continues to smoke despite his underlying clinical condition. The patient was maintained on inhaled bronchodilators. The patient had no evidence of any acute COPD exacerbation. The patient was being followed by pulmonology. The patient has history of latent TB. The patient was evaluated by pulmonary. The patient had a neck mass/lipoma. The patient already had a full workup as outpatient for the same. The patient was also noticed to have pulmonary hypertension with high PA systolic pressure as per 2D echocardiogram. The patient continues use of nicotine. The patient was informed the importance of cessation of the use of nicotine. The patient is also a current or drug abuser. The patient's urine drug screen was positive for amphetamines and cannabinoids. The patient was evaluated by physical therapy. Physical therapy requested note for PT services. On 10/17/2006, the patient decided to leave the hospital against medical advice. The patient was instructed on the consequences of leaving the hospital against medical advice including the possibility of . Nevertheless, the patient refused to stay and he left the hospital against medical advice. No discharge planning was done since the patient left the hospital against medical advice. PERTINENT LABORATORY AND DIAGNOSTIC DATA: 1. 2D echocardiogram. Ejection fraction of 20% to 25%. Estimated peak PA systolic pressure of 51 mmHg. There is mild tricuspid regurgitation. 2. Brain MRI. Acute infarct in the posterior right frontal lobe as well as a small area in the right parietal lobe. 3. Right lower extremity venous Doppler study, no evidence of DVT. 4. Neck ultrasound. 4.2 x 4.2 x 0.67 cm echogenic revealed moderate left neck subcutaneous mass suspicious for a lymphoma. 5. Latest CBC: WBC 6.3, hemoglobin 16.0, hematocrit 49.3, platelet count 180. 6. Latest BMP: Sodium 142, potassium 4.3, chloride 104, carbon dioxide 20, anion gap 14, BUN 19, creatinine 0.95, glucose 88, calcium 10.0. 7. Hemoglobin A1c of 5.9. 8. Lipid panel revealed triglycerides 101, total cholesterol 216, LDL 155, HDL 42. At this time, I would like to thank all the consultants for seeing the patient and providing clinical recommendations. The case and management of this patient was fully discussed with Dr. Leiva. JOVANA LEIVA MD, AM/KIKE Conf#: [id number] DID#: [id number] MTDD
[2016-10-17] MEDS ORDERED: FAMOTIDINE 20 MG TAB PO SCH (21:00)
--- NOTE | 2016-10-18 15:44 | RADRPT ---
Vent Rate: 150 bpm RR Interval: 0 msec VT Interval: 0 msec QRS Duration: 100 msec QT Interval: 310 msec QTC Interval: 489 msec P-R-T Peever: 0 - 105 - -61 degrees Atrial fibrillation with rapid ventricular response Rightward axis Marked ST abnormality, possible inferior subendocardial injury Abnormal ECG Electronically Signed By: Otis Saenz [id number]
== END 2016-10-17 15:10 | disposition left against medical advice (07) | DRG 62 ==
LOC: E/R 20:49 → ICU 23:42 → TEL 10-15 17:06
PROVIDERS: ADMIT Internal Medicine; ATTEND Internal Medicine
DX: I63.511 Cerebral infarction due to unspecified occlusion or stenosis of right middle cerebral artery (principal); G81.90 Hemiplegia, unspecified affecting unspecified side; I42.9 Cardiomyopathy, unspecified; I27.2 Other secondary pulmonary hypertension; A15.9 Respiratory tuberculosis unspecified; I48.91 Unspecified atrial fibrillation; I10 Essential (primary) hypertension; R29.810 Facial weakness; Z72.0 Tobacco use; F15.10 Other stimulant abuse, uncomplicated; Z85.118 Personal history of other malignant neoplasm of bronchus and lung; R27.8 Other lack of coordination; R29.704 NIHSS score 4; Z86.73 Personal history of transient ischemic attack (TIA), and cerebral infarction without residual deficits; Z91.19 Patient's noncompliance with other medical treatment and regimen; Z85.01 Personal history of malignant neoplasm of esophagus; Z85.05 Personal history of malignant neoplasm of liver; D17.79 Benign lipomatous neoplasm of other sites
CPT/HCPCS: 36415; 70450; 70544; 70551; 71010; 76536; 80048; 80053; 80061; 80307; 81003; 82962; 83036; 83880; 84443; 84484; 85025; 85610; 85730; 92526; 92610; 93005; 93306; 93971; 97161; J2997; J7030